=== PATIENT | female | born 1980 | race Caucasian/White ===

== ENCOUNTER 2017-02-09 08:38 | Emergency (ER) | payer BC ==
[~2017-02-09] VITALS: Ht 162.6 cm; Wt 77.1 kg
[~2017-02-09 08:38] MED LIST: ADAL40PE SQ; AZAT50TA10 PO; HYDR200T PO; LEVO150C PO
[2017-02-09] MEDS ORDERED: IV NORMAL SALINE 1000ML BAG 1,000 ML IV SCH (09:21)
[2017-02-09] MEDS ORDERED: ONDANSETRON PF 4 MG/2 ML VIAL. IV ONE (09:30)
[2017-02-09] MEDS ORDERED: MORPHINE SULFATE 4 MG/ML DISP.SYRIN. IV/SQ PRN (09:30)
[2017-02-09 09:41] LABS: BILIRUBIN,URINE SMALL (NEG); GLUCOSE,URINE NEGATIVE (NEG); NITRITE,URINE NEGATIVE (NEG); PH,URINE 5.5; PROTEIN,URINE NEGATIVE (NEG-TRACE); UROBILINOGEN,URINE 0.2 mg/dL (0.2 mg/dL)
[2017-02-09 09:54] LABS: CALCIUM 9.1 mg/dL (8.5-10.1); CREATININE 0.9 mg/dL (0.6-1.0); GFR 70.8; POTASSIUM 3.3 mmol/L (3.5-5.1)
[2017-02-09 09:57] LABS: BASO % 1 % (0-3); EOS % 3 % (0-3); HEMATOCRIT 41.7 % (36.0-47.0); HEMOGLOBIN 14.3 g/dL (12.0-15.5); LYMPH # 1.7 x10^3/uL (1.0-4.8); LYMPH % 32 % (24-48); MEAN CORPUSCULAR HEMOGLOBIN 30 pg (25-35); MEAN CORPUSCULAR HGB CONC 34 g/dL (31-37); MEAN CORPUSCULAR VOLUME 87 fL (79-100); MONO % 15 % (0-9); NEUT % 50 % (31-73); PLATELET COUNT 301 x10^3/uL (140-400); RED BLOOD COUNT 4.79 x10^6/uL (3.50-5.40); RED CELL DISTRIBUTION WIDTH 13.3 % (11.5-14.5); WHITE BLOOD COUNT 5.3 x10^3/uL (4.0-11.0)
[2017-02-09 10:02] LABS: ALBUMIN 4.2 g/dL (3.4-5.0); ALBUMIN/GLOBULIN RATIO 1.2 (1.0-1.7); TOTAL BILIRUBIN 1.1 mg/dL (0.2-1.0); TOTAL PROTEIN 7.8 g/dL (6.4-8.2)
[2017-02-09 10:04] LABS: BACTERIA,URINE MODERATE /HPF (0-FEW); RBC,URINE 0 /HPF (0-2); WBC,URINE OCC /HPF (0-4)
[2017-02-09 10:05] LABS: SQUAMOUS EPITHELIAL CELL,UR MOD /LPF
--- NOTE | 2017-02-09 10:19 | RAD ---
Acute abdomen series with chest, 3 views, 02/09/2017: History: Nausea, vomiting, upper abdominal pain, Crohn's disease There is a paucity of bowel gas in the abdomen, perhaps related to the history of vomiting. No dilated bowel loops are delineated. No free air is seen in the abdomen. Surgical clips are present in the right upper quadrant. Lower pelvic calcifications are compatible with phleboliths. There is a mild thoracolumbar scoliosis. The heart size and pulmonary vascularity are normal. A tiny nodular opacity in the right upper chest is probably a granuloma. No pulmonary infiltrates are seen. There is no evidence of pleural fluid. IMPRESSION: No acute abdominal abnormality is detected.
--- NOTE | 2017-02-09 10:27 | PHYS DOC ---
Past Medical History Past Medical History: Hypertension, Migraines Additional Past Medical Histor: CCROHN'S, RHEUMATOID ARTHRITIS, CONSTANCE, ULCERATIVE COLITIS, BOSETS, Past Surgical History: Cholecystectomy, Hysterectomy, Tonsillectomy, Other Additional Past Surgical Histo: THYROID REMOVED, RIGHT KNEE SX, Alcohol Use: None Drug Use: None Adult General Chief Complaint Chief Complaint: ABDOMINAL PAIN HPI HPI Patient is a 36 year old female with history of Crohn's disease who presents with upper abdominal pain with nausea, vomiting, and diarrhea for 1 week. She has had intermittent blood in the stools. She reports subjective fever, but was out of town and unable to take her temperature. She denies urinary symptoms. She is currently taking Imuran for her Crohn's. She is also receiving injections of Entyvio and is in the loading dose phase, as it is a new medication for her. Her PCP is Dr. Yi. Her GI doctor is Dr. Riley. Review of Systems Review of Systems Constitutional: Reports subjective fever. Eyes: Denies change in visual acuity, redness, or eye pain. [] HENT: Denies ear pain, nasal congestion or sore throat. [] Respiratory: Denies cough or shortness of breath. [] Cardiovascular: Denies chest pain, palpitations or edema. [] GI: Reports upper abdominal pain, nausea, vomiting, diarrhea, and occasional bloody stools. : Denies dysuria, hematuria or urinary frequency. [] Musculoskeletal: Denies back pain or joint pain. [] Integument: Denies rash or skin lesions. [] Neurologic: Denies headache, focal weakness or sensory changes. [] Endocrine: Denies polyuria or polydipsia. [] Psych: Denies anxiety or depression. [] All systems reviewed and negative unless otherwise stated in the HPI. Current Medications Current Medications Current Medications Medications (Trade) Dose Ordered Sig/Krish Start Time Stop Time Status Last Admin Dose Admin Fentanyl Citrate (Fentanyl 2ml Vial) 50 mcg PRN Q15MIN PRN 02/09/17 10:45 02/10/17 10:44 02/09/17 11:06 50 MCG Morphine Sulfate 4 mg 4 mg PRN Q15MIN PRN 02/09/17 09:30 02/10/17 09:29 02/09/17 09:40 4 MG Ondansetron HCl (Zofran) 4 mg 1X ONCE 02/09/17 09:30 02/09/17 09:31 DC 02/09/17 09:38 4 MG Sodium Chloride (Iv Sodium Chloride 0.9% 1000ml Bag) 1,000 ml @ 1,000 mls/hr Q1H 02/09/17 09:21 02/09/17 10:20 DC 02/09/17 09:42 1,000 MLS/HR Allergies Allergies Allergies Coded Allergies Type Severity Reaction Last Updated Verified levothyroxine sodium Allergy Intermediate Hives 05/26/16 Yes penicillin G Allergy Intermediate 05/26/16 Yes Physical Exam Physical Exam Constitutional: Well developed, well nourished, no acute distress, non-toxic appearance. [] HENT: Normocephalic, atraumatic, oropharynx moist. [] Eyes: PERRLA, EOMI, conjunctiva normal, no discharge. [] Neck: Normal range of motion, no tenderness, supple, no stridor. [] Cardiovascular: Heart rate regular rhythm, no murmur. [] Lungs & Thorax: Bilateral breath sounds clear to auscultation without wheezes, rales, or rhonchi. [] Abdomen: Bowel sounds normal, soft, diffuse upper abdominal tenderness, no masses, no pulsatile masses. [] Skin: Warm, dry, no erythema, no rash. [] Extremities: No tenderness, ROM intact, no edema. Distal pulses equal bilaterally. [] Neurologic: Alert and oriented X 3, normal motor function, normal sensory function, no focal deficits noted. [] Psychologic: Affect normal, judgement normal, mood normal. [] Current Patient Data Vital Signs Vital Signs Date Time Temp Pulse Resp B/P Pulse Ox O2 Delivery O2 Flow Rate FiO2 02/09/17 11:06 16 99 Room Air 02/09/17 11:00 54 97/65 02/09/17 08:45 98.1 98.1 Lab Values Laboratory Tests Test 02/09/17 08:00 02/09/17 09:20 02/09/17 09:30 POC Urine HCG, Qualitative Hcg negative (Negative) Urine Collection Type Unknown Urine Color Maryellen Urine Clarity Cloudy Urine pH 5.5 Urine Specific [place] 1.025 Urine Protein Negativemg/dL (NEG-TRACE) Urine Glucose (UA) Negativemg/dL (NEG) Urine Ketones (Stick) 40mg/dL (NEG) Urine Blood Small (NEG) Urine Nitrite Negative (NEG) Urine Bilirubin Small (NEG) Urine Urobilinogen Dipstick 0.2mg/dL (0.2 mg/dL) Urine Leukocyte Esterase Negative (NEG) Urine RBC 0/HPF (0-2) Urine WBC Occ/HPF (0-4) Urine Squamous Epithelial Cells Mod/LPF Urine Bacteria Moderate/HPF (0-FEW) Urine Mucus Slight/LPF White Blood Count 5.3x10^3/uL (4.0-11.0) Red Blood Count 4.79x10^6/uL (3.50-5.40) Hemoglobin 14.3g/dL (12.0-15.5) Hematocrit 41.7% (36.0-47.0) Mean Corpuscular Volume 87fL (79-100) Mean Corpuscular Hemoglobin 30pg (25-35) Mean Corpuscular Hemoglobin Concent 34g/dL (31-37) Red Cell Distribution Width 13.3% (11.5-14.5) Platelet Count 301x10^3/uL (140-400) Neutrophils (%) (Auto) 50% (31-73) Lymphocytes (%) (Auto) 32% (24-48) Monocytes (%) (Auto) 15% (0-9) H Eosinophils (%) (Auto) 3% (0-3) Basophils (%) (Auto) 1% (0-3) Neutrophils # (Auto) 2.6x10^3uL (1.8-7.7) Lymphocytes # (Auto) 1.7x10^3/uL (1.0-4.8) Monocytes # (Auto) 0.8x10^3/uL (0.0-1.1) Eosinophils # (Auto) 0.2x10^3/uL (0.0-0.7) Basophils # (Auto) 0.0x10^3/uL (0.0-0.2) Sodium Level 139mmol/L (136-145) Potassium Level 3.3mmol/L (3.5-5.1) L Chloride Level 101mmol/L (98-107) Carbon Dioxide Level 28mmol/L (21-32) Anion Gap 10 (6-14) Blood Urea Nitrogen 12mg/dL (7-20) Creatinine 0.9mg/dL (0.6-1.0) Estimated GFR (Cockcroft-Gault) 70.8 BUN/Creatinine Ratio 13 (6-20) Glucose Level 89mg/dL (70-99) Calcium Level 9.1mg/dL (8.5-10.1) Total Bilirubin 1.1mg/dL (0.2-1.0) H Aspartate Amino Transferase (AST) 107U/L (15-37) H Alanine Aminotransferase (ALT) 105U/L (14-59) H Alkaline Phosphatase 62U/L (46-116) Total Protein 7.8g/dL (6.4-8.2) Albumin 4.2g/dL (3.4-5.0) Albumin/Globulin Ratio 1.2 (1.0-1.7) Lipase 95U/L (73-393) Laboratory Tests 02/09/17 09:30 Laboratory Tests 02/09/17 09:30 EKG EKG [] Radiology/Procedures Radiology/Procedures REASON: nausea, vomiting, diarrhea since 02/03/17, upper abd pain, hx crohns PROCEDURE: ACUTE ABDOMEN SERIES Acute abdomen series with chest, 3 views, 02/09/2017: History: Nausea, vomiting, upper abdominal pain, Crohn's disease There is a paucity of bowel gas in the abdomen, perhaps related to the history of vomiting. No dilated bowel loops are delineated. No free air is seen in the abdomen. Surgical clips are present in the right upper quadrant. Lower pelvic calcifications are compatible with phleboliths. There is a mild thoracolumbar scoliosis. The heart size and pulmonary vascularity are normal. A tiny nodular opacity in the right upper chest is probably a granuloma. No pulmonary infiltrates are seen. There is no evidence of pleural fluid. IMPRESSION: No acute abdominal abnormality is detected. REASON: upper abd pain, n/v/d, elevated LFTs PROCEDURE: ABDOMEN LTD Right upper quadrant abdominal ultrasound, 02/09/2017: History: Upper abdominal pain, nodular and vomiting The gallbladder is surgically absent. No bile duct dilatation is seen. There is no evidence of a hepatic mass. The pancreatic body is unremarkable. Other portions of the pancreas were obscured by overlying bowel. Limited views of the right kidney show no abnormality. IMPRESSION: 1. Status post cholecystectomy. 2. No acute abnormality is detected. Course & Med Decision Making Course & Med Decision Making Pertinent Labs and Imaging studies reviewed. (See chart for details) Patient is a 36 year old female history of Crohn's disease who presents with 1 week of upper abdominal pain with nausea, vomiting, and diarrhea. On exam, her abdomen is soft and nonsurgical with diffuse upper abdominal tenderness. Laboratory evaluation reveals no leukocytosis. She has mild elevation of the LFTs and bilirubin. She has reportedly had cholecystectomy. Acute abdominal x- ray does not show any evidence of obstruction. Abdominal ultrasound does not show any acute abnormalities. The patient was initially given IV morphine for her pain. She stated that the morphine made her pain worse initially. Pain medication was changed to IV fentanyl with improvement in her pain. She was also given IV fluids and Zofran. I discussed the results with the patient and her spouse. Return precautions were discussed. She verbalizes understanding and agrees with plan. Dragon Disclaimer Dragon Disclaimer This electronic medical record was generated, in whole or in part, using a voice recognition dictation system. Departure Departure Impression: Primary Impression: Abdominal pain Additional Impression: Vomiting and diarrhea Disposition: 01 HOME, SELF-CARE Condition: IMPROVED Referrals: JUSTIN YI (PCP) SOFIA RILEY MD Patient Instructions: Abdominal Pain, [id number], Crohn's Disease, Diarrhea, [id number] Additional Instructions: Your x-ray and ultrasound were normal today. Your labs were normal with the exception of mildly elevated liver enzyme tests. Please take the prescribed pain medication as directed. Do not drive or operate heavy machinery while taking pain medication. Please follow-up with Dr. Riley in the next 2-3 days, sooner if concerns. Return to the emergency department if you have fever, severe pain, continued vomiting, bloody stools, or other new or concerning symptoms. Scripts Promethazine Hcl 25 Mg Biiewf05 Mg PO Q6H PRN NAUSEA/VOMITING #20 TAB Prov:SINDHU SAUER 02/09/17 Hydrocodone/Apap 5-325 ([place] 5-325 Tablet)1 Each Tablet1 Tab PO PRN Q6HRS PRN PAIN #20 TAB Prov:SINDHU SAUER 02/09/17 Problem Qualifiers Primary Impression: Abdominal pain Abdominal location: upper abdomen, unspecified Qualified Code: R10.10 - Upper abdominal pain, unspecified SINDHU SAUER Feb 09, 2017 10:27
[2017-02-09] MEDS ORDERED: FENTANYL PF 100 MCG/2 ML VIAL. IV PRN (10:45)
--- NOTE | 2017-02-09 11:10 | RAD ---
Right upper quadrant abdominal ultrasound, 02/09/2017: History: Upper abdominal pain, nodular and vomiting The gallbladder is surgically absent. No bile duct dilatation is seen. There is no evidence of a hepatic mass. The pancreatic body is unremarkable. Other portions of the pancreas were obscured by overlying bowel. Limited views of the right kidney show no abnormality. IMPRESSION: 1. Status post cholecystectomy. 2. No acute abnormality is detected.
[2017-02-09] MEDS ORDERED: PROM25TA10 PO (12:00)
[2017-02-09] MEDS ORDERED: HYDR-971 PO (12:00)
[2017-02-09 12:02] VITALS: BP 92/53
== END 2017-02-09 12:16 | disposition home or self-care (01) ==
LOC: ER 08:38
DX: R10.10 Upper abdominal pain, unspecified (principal); R11.2 Nausea with vomiting, unspecified; R19.7 Diarrhea, unspecified; R79.89 Other specified abnormal findings of blood chemistry; K92.1 Melena; R50.9 Fever, unspecified; I10 Essential (primary) hypertension; G43.909 Migraine, unspecified, not intractable, without status migrainosus; M06.9 Rheumatoid arthritis, unspecified; Z87.19 Personal history of other diseases of the digestive system; Z90.49 Acquired absence of other specified parts of digestive tract; Z88.0 Allergy status to penicillin
CPT/HCPCS: 36415; 74022; 76705; 80053; 81001; 81025; 83690; 85027; 87086; 96361; 96374; 96375; 99285; J2270; J2405; J3010; J7030

== ENCOUNTER → 2018-01-20 | Outpatient (CLI) | payer BC ==
[2018-01-20 14:11] LABS: ADD MAN DIFF? NO
[2018-01-20 14:14] LABS: BASO # 0.1 x10^3/uL (0.0-0.2); BASO % 1 % (0-3); EOS # 0.3 x10^3/uL (0.0-0.7); EOS % 4 % (0-3); HEMATOCRIT 40.9 % (36.0-47.0); HEMOGLOBIN 13.9 g/dL (12.0-15.5); LYMPH # 2.2 x10^3/uL (1.0-4.8); LYMPH % 26 % (24-48); MEAN CORPUSCULAR HEMOGLOBIN 31 pg (25-35); MEAN CORPUSCULAR HGB CONC 34 g/dL (31-37); MEAN CORPUSCULAR VOLUME 89 fL (79-100); MONO # 0.8 x10^3/uL (0.0-1.1); MONO % 9 % (0-9); NEUT # 5.3 x10^3uL (1.8-7.7); NEUT % 61 % (31-73); PLATELET COUNT 324 x10^3/uL (140-400); RED BLOOD COUNT 4.57 x10^6/uL (3.50-5.40); RED CELL DISTRIBUTION WIDTH 13.1 % (11.5-14.5); WHITE BLOOD COUNT 8.6 x10^3/uL (4.0-11.0)
[2018-01-20 14:33] LABS: ALBUMIN 3.9 g/dL (3.4-5.0); ALK PHOS 62 U/L (46-116); ALT (SGPT) 35 U/L (14-59); ANION GAP 5 (6-14); AST (SGOT) 21 U/L (15-37); BLOOD UREA NITROGEN 12 mg/dL (7-20); BUN/CREATININE RATIO 15 (6-20); CARBON DIOXIDE 30 mmol/L (21-32); CHLORIDE 103 mmol/L (98-107); CREATININE 0.8 mg/dL (0.6-1.0); GFR 80.7; GLUCOSE 90 mg/dL (70-99); POTASSIUM 3.9 mmol/L (3.5-5.1); SODIUM 138 mmol/L (136-145); TOTAL BILIRUBIN 0.6 mg/dL (0.2-1.0); TOTAL PROTEIN 7.7 g/dL (6.4-8.2)
[2018-01-21 04:22] LABS: MRSA BY PCR Negative (Negative)
== END | disposition home or self-care (01) ==
LOC: SURGPAT 13:15
DX: Z01.818 Encounter for other preprocedural examination (principal); M51.16 Intervertebral disc disorders with radiculopathy, lumbar region
CPT/HCPCS: 36415; 80053; 85025; 87641

== ENCOUNTER 2018-01-27 06:51 | Day surgery (SDC) | payer BC ==
[2018-01-27] MEDS ORDERED: MORPHINE SULFATE 4 MG/ML DISP.SYRIN. IV (07:00)
[2018-01-27] MEDS ORDERED: LIDOCAINE 1% PF 2 ML VIAL. ID (07:00)
[2018-01-27] MEDS ORDERED: fentaNYL PF VIAL 100 MCG/2 ML VIAL IV (07:00)
[2018-01-27] MEDS: IV RINGERS,LACTATED 1000ML 1,000 ML IV (07:00)
[2018-01-27] MEDS ORDERED: PROCHLORPERAZINE 10 MG/2 ML VIAL. IV (07:00)
[2018-01-27] MEDS ORDERED: DEXAMETHASONE SOD PHOS 20 MG/5 ML VIAL. (07:52)
[2018-01-27] MEDS ORDERED: ONDANSETRON PF 4 MG/2 ML VIAL. (07:52)
[2018-01-27] MEDS: VANCOMYCIN 1GM IVPB FOR OMNI 250 ML IV (07:52)
[2018-01-27] MEDS ORDERED: LIDOCAINE 2% PF Vial for OR 5 ML VIAL. (07:52)
[2018-01-27] MEDS ORDERED: PROPOFOL 20 ML IV (07:52)
[2018-01-27] MEDS ORDERED: PHENYLEPHRINE 10 MG/ML VIAL. (07:53)
[2018-01-27] MEDS ORDERED: PROPOFOL 50 ML IV ×2 (07:53→10:12)
[2018-01-27] MEDS ORDERED: REMIFENTANIL 1 MG VIAL. IV (07:53)
[2018-01-27] MEDS ORDERED: ROCURONIUM 50 MG/5 ML VIAL. (07:53)
[2018-01-27] MEDS ORDERED: MINERAL OIL/PETROLATUM,WHITE OPHTH OINT 3.5GM TUBE. (07:53)
[2018-01-27] MEDS ORDERED: MIDAZOLAM HCL/PF 2 MG/2 ML VIAL. (07:53)
[2018-01-27] MEDS ORDERED: 0.9 % SODIUM CHLORIDE 50 ML VIAL. IJ (07:54)
[2018-01-27] MEDS: GELATIN SPONGE SIZE 100. (09:35)
[2018-01-27] MEDS: BACITRACIN 50,000 UNIT in IV NORMAL SALINE 1000ML BAG 1,000 ML IRR (09:35)
[2018-01-27] MEDS: THROMBIN TOPICAL 20,000 UNIT SPRAY.SYRN KIT TP (09:35)
[2018-01-27] MEDS: KETOROLAC 60 MG/2 ML INJ FOR OR. (09:35)
[2018-01-27] MEDS: BUPIVAC MPF-EPI 0.5%-1:200000 30 ML VIAL. INJ (09:35)
[2018-01-27] MEDS ORDERED: GLYCOPYRROLATE 1 MG/5 ML VIAL. (09:58)
[2018-01-27] MEDS ORDERED: NEOSTIGMINE 10 MG/10 ML VIAL. (10:25)
[2018-01-27] MEDS ORDERED: DESFLURANE 61 TO 120 MINUTES IH (10:32)
[2018-01-27] MEDS: ONDANSETRON PF 4 MG/2 ML VIAL. IV (11:12)
[2018-01-27] MEDS: fentaNYL PF VIAL 100 MCG/2 ML VIAL IV ×2 (11:12→11:40)
[2018-01-27] MEDS ORDERED: HYDROcodone/APAP 7.5/325MG 1 TAB TABLET PO (11:30)
[2018-01-27] MEDS: HYDROcodone/APAP 7.5/325MG 1 TAB TABLET PO (11:42)
== END 2018-01-27 12:28 | disposition home or self-care (01) ==
LOC: SURG 06:51
DX: M51.16 Intervertebral disc disorders with radiculopathy, lumbar region (principal); M48.07 Spinal stenosis, lumbosacral region; I10 Essential (primary) hypertension; G43.909 Migraine, unspecified, not intractable, without status migrainosus; E07.9 Disorder of thyroid, unspecified; M06.9 Rheumatoid arthritis, unspecified; Z88.0 Allergy status to penicillin; Z90.710 Acquired absence of both cervix and uterus; Z90.49 Acquired absence of other specified parts of digestive tract; Z98.890 Other specified postprocedural states; Z79.899 Other long term (current) drug therapy
CPT/HCPCS: 63030; 76000; 88304; 88311; 97161-GP; J1100; J1885; J2250; J2405; J2704; J2710; J3010; J3370; J3490; J7030

== ENCOUNTER → 2018-03-09 | Outpatient (CLI) | payer BC ==
[2018-03-09] MEDS: GADOBUTROL 7.5 MMOL/7.5 ML VIAL IV (10:02)
== END | disposition home or self-care (01) ==
LOC: MRI 08:44
DX: M51.36 Other intervertebral disc degeneration, lumbar region (principal)
CPT/HCPCS: 72120; 72158; A9585

== ENCOUNTER → 2018-06-06 | Outpatient (CLI) | payer BC | END | disposition home or self-care (01) | LOC: PNCL 09:12 | DX: M54.5 Low back pain (principal); K50.90 Crohn's disease, unspecified, without complications; E06.3 Autoimmune thyroiditis; M19.90 Unspecified osteoarthritis, unspecified site; G43.909 Migraine, unspecified, not intractable, without status migrainosus; I10 Essential (primary) hypertension; Z90.710 Acquired absence of both cervix and uterus; Z90.49 Acquired absence of other specified parts of digestive tract | CPT/HCPCS: 99214 ==

== ENCOUNTER → 2018-06-13 | Outpatient (CLI) | payer BC ==
[~2018-06-13] MED LIST changes: -ADAL40PE SQ; -AZAT50TA10 PO; +BUPIVACAINE MPF 0.25% 10 ML VIAL.; -HYDR200T PO; +IOHEXOL 180 MG/ML 10 ML VIAL.; -LEVO150C PO; +LIDOCAINE 2% PF 2ML VIAL.; +methylPREDNISolone ACETATE 40 MG/ML VIAL.; +methylPREDNISolone ACETATE 80 MG/ML VIAL.
== END | disposition home or self-care (01) ==
LOC: PNCL 07:46
DX: M51.36 Other intervertebral disc degeneration, lumbar region (principal); M96.1 Postlaminectomy syndrome, not elsewhere classified; M47.817 Spondylosis without myelopathy or radiculopathy, lumbosacral region; G43.909 Migraine, unspecified, not intractable, without status migrainosus; Z88.0 Allergy status to penicillin; Z88.1 Allergy status to other antibiotic agents; Z98.890 Other specified postprocedural states; Z90.49 Acquired absence of other specified parts of digestive tract; K50.90 Crohn's disease, unspecified, without complications; Z90.710 Acquired absence of both cervix and uterus; Z90.79 Acquired absence of other genital organ(s); M06.9 Rheumatoid arthritis, unspecified; E89.0 Postprocedural hypothyroidism; Z79.899 Other long term (current) drug therapy
CPT/HCPCS: 64493; 64494; J1030; J1040; J2001; J3490; Q9965

== ENCOUNTER → 2018-06-29 | Outpatient (CLI) | payer BC ==
[2018-01-27 11:49] VITALS: BP 106/64
[~2018-06-29] MED LIST changes: +ADAL40PE SQ; +AZAT50TA20 PO; -BUPIVACAINE MPF 0.25% 10 ML VIAL.; +FOLI1TAB16 PO; +HYDR-2762 PO; +HYDR-971 PO; +HYDR200T71 PO; -IOHEXOL 180 MG/ML 10 ML VIAL.; +LEFLUNOMIDE20 MG PO; +LEVO100C PO; +LEVO150C PO; -LIDOCAINE 2% PF 2ML VIAL.; +METH-38 PO; +METH2.5T PO; +ONDA4TAB7 PO; +PROM25TA10 PO; +VEDO300V IV; -methylPREDNISolone ACETATE 40 MG/ML VIAL.; -methylPREDNISolone ACETATE 80 MG/ML VIAL.
--- NOTE | 2018-06-29 22:16 | PAIN ---
DATE OF SERVICE: 06/29/2018 PROGRESS NOTE FOR PAIN CLINIC DIAGNOSIS: Lumbar post-laminectomy syndrome with lumbar degenerative disk disease and lumbosacral spondylosis. HISTORY OF PRESENT ILLNESS: The patient is a 38-year-old female who returns for followup status post bilateral lumbar facet joint injections. The patient reports about 50% improvement, 100% on the right and still significant pain on the left. The patient reports it is an 8 on a scale of 10 at its worst, 6 on average, 4 at its least and is a 6 today. The patient reports it is aching, tight, burning, stabbing, shooting, worse with extension of the spine, worse with standing. Awakens her from sleep about every 4 hours if she lays on the left side. The patient reports no loss of motor function. No bowel or bladder incontinence or other complaints. She has pressure on the left when urinating as well. She has had difficulty lying flat on her back, which keeps her from sleeping well. The patient reports no new motor or sensory deficits, no new bowel or bladder incontinence or other complaints. PHYSICAL EXAMINATION: VITAL SIGNS: The patient's blood pressure is 121/81, pulse 78, respirations 16, temperature 98.4 degrees Fahrenheit, weight is 179 pounds. GENERAL: The patient is awake, alert, oriented, appropriate, very pleasant demeanor. HEENT: Head shows normocephalic and atraumatic. Extraocular movements are intact and symmetrical. Oral cavity: Mucous membranes are moist and pink. Dentition is intact. NECK: Shows anterior throat supple without palpable lymphadenopathy noted. Swallow reflex is symmetrical. CHEST: Shows normal on inspection. Breath sounds are clear to auscultation bilaterally. HEART: Shows S1, S2 clear. No murmurs auscultated. ABDOMEN: Soft, nontender, nondistended. No palpable organomegaly is noted. No rebound or guarding demonstrated. BACK: Shows spine grossly in the midline. Normal-appearing cervical lordotic curvature, thoracic kyphotic curvature, and lumbar lordotic curvature is slightly flattened with well-healed surgical scarring noted. Lumbar paraspinous muscle shows symmetrical on inspection, on palpation has some mild tenderness on the left, but not the right. Right is nontender with palpation throughout the upper, middle, and lower distribution. Left side is tender with the middle palpation in the left paraspinous musculature. The patient has good rotational motion with some moderate tenderness with extension of the spine and axial loading on the left only, but is relieved fairly quickly with forward flexion at 45 degrees, right and left lateral rotation does not elicit any pain bilaterally. EXTREMITIES: Lower extremities show deep tendon reflexes at 2+ in the patellar tendons. Motor exam is strong with 5/5 dorsiflexion, extension, quadriceps and hamstring flexion and equal and symmetrical. Peripheral pulses are 1+ posterior tibia. No peripheral edema is noted. Options were discussed with the patient. The patient's old chart was reviewed as her current medication regimen updated. Current review of systems updated today as well and we will hold on any further injections as the patient is adamant about not performing any more injections at this time as it is quite uncomfortable for her. We discussed some other options. We will send her for water therapy, for stretching and strengthening as well as aerobic pool therapy. The patient is interested in this and would like to proceed. We will have the patient follow up after physical therapy is completed, if not significantly improved. ANGIE MONTEIRO MD DR: ROSY/barbra JOB#: [id number] / [id number]
== END | disposition home or self-care (01) ==
LOC: PNCL 08:05
PROVIDERS: ATTEND Anesthesiology
DX: M51.36 Other intervertebral disc degeneration, lumbar region (principal); M47.897 Other spondylosis, lumbosacral region; M96.1 Postlaminectomy syndrome, not elsewhere classified
CPT/HCPCS: 99212

== ENCOUNTER 2018-10-01 16:13 | Emergency (ER) | payer BC ==
[~2018-10-01] VITALS: Ht 162.6 cm; Wt 78.5 kg
[~2018-10-01 16:13] MED LIST changes: +HYDR-3164 PO; -HYDR-971 PO
[2018-10-01 17:12] LABS: BILIRUBIN,URINE NEGATIVE (NEG); CLARITY,URINE CLEAR; COLOR,URINE YELLOW; NITRITE,URINE NEGATIVE (NEG); PH,URINE 5.5; PROTEIN,URINE NEGATIVE (NEG-TRACE); UROBILINOGEN,URINE 0.2 mg/dL (0.2 mg/dL)
[2018-10-01] MEDS ORDERED: IOHEXOL 300 MG/ML 100ML VIAL. IV ONE (17:15)
[2018-10-01] MEDS ORDERED: DICYCLOMINE 20 MG/2 ML AMPUL. IM ONE (17:15)
[2018-10-01] MEDS ORDERED: ONDANSETRON PF 4 MG/2 ML VIAL. IV ONE (17:15)
[2018-10-01] MEDS ORDERED: fentaNYL PF VIAL 100 MCG/2 ML VIAL IV ONE ×2 (17:15→18:30)
[2018-10-01] MEDS ORDERED: CONTRAST GIVEN. MC PRN (17:15)
[2018-10-01] MEDS ORDERED: IV NORMAL SALINE 1000ML BAG 1,000 ML IV ONE (17:15)
--- NOTE | 2018-10-01 17:20 | PHYS DOC ---
Past Medical History Past Medical History: Hypertension, Migraines Additional Past Medical Histor: CCROHN'S, RHEUMATOID ARTHRITIS, CONSTANCE, ULCERATIVE COLITIS, BAHCETS, Past Surgical History: Cholecystectomy, Hysterectomy, Tonsillectomy, Other Additional Past Surgical Histo: THYROID REMOVED, RIGHT KNEE SX, Alcohol Use: None Drug Use: None Adult General Chief Complaint Chief Complaint: ABDOMINAL PAIN HPI HPI Patient is a 38 year old female who presents with history of Crohn's and she's had diarrhea, nausea, right side and right upper called pain the last 2 weeks. She states this does feel like a Crohn's flare. Patient states that she does see red blood in her stool but that she does have hemorrhoids and a fissure. Patient states that this morning she had a dizzy spell but there was no syncope. Patient's GI doctor is Dr. Rosa and her primary care doctor is Dr. Lo. Patient has a history of hysterectomy, Crohn's, thyroidectomy, bahcet, rheumatoid arthritis, cholecystectomy, back surgeries. Review of Systems Review of Systems Constitutional: Denies fever or chills [] Eyes: Denies change in visual acuity, redness, or eye pain [] HENT: Denies nasal congestion or sore throat [] Respiratory: Denies cough or shortness of breath [] Cardiovascular: No additional information not addressed in HPI [] GI: Right upper inside abdominal pain, nausea. Denies vomiting. Chronic bloody stools or diarrhea [] : Denies dysuria or hematuria [] Musculoskeletal: Denies back pain or joint pain [] Integument: Denies rash or skin lesions [] Neurologic: Dizziness this morning 1 episode. Denies headache, focal weakness or sensory changes [] All other systems were reviewed and found to be within normal limits, except as documented in this note. Current Medications Current Medications Current Medications Medications (Trade) Dose Ordered Sig/Krish Start Time Stop Time Status Last Admin Dose Admin Dicyclomine HCl (Bentyl) 10 mg 1X ONCE 10/01/18 17:15 10/01/18 17:16 DC 10/01/18 17:19 10 MG Fentanyl Citrate (Fentanyl 2ml Vial) 50 mcg 1X ONCE 10/01/18 18:30 10/01/18 18:31 DC 10/01/18 18:24 50 MCG Info (CONTRAST GIVEN -- Rx MONITORING) 1 each PRN DAILY PRN 10/01/18 17:15 10/03/18 17:14 Iohexol (Omnipaque 300 Mg/ml) 75 ml 1X ONCE 10/01/18 17:15 10/01/18 17:16 DC 10/01/18 17:15 75 ML Ondansetron HCl (Zofran) 4 mg 1X ONCE 10/01/18 17:15 10/01/18 17:16 DC 10/01/18 17:20 4 MG Sodium Chloride 1,000 ml @ 1,000 mls/hr 1X ONCE 10/01/18 17:15 10/01/18 18:14 DC 10/01/18 17:20 1,000 MLS/HR Allergies Allergies Allergies Coded Allergies Type Severity Reaction Last Updated Verified levothyroxine sodium Allergy Intermediate Hives 01/20/18 Yes penicillin G Allergy Intermediate 01/20/18 Yes Physical Exam Physical Exam Constitutional: Well developed, well nourished, no acute distress, non-toxic appearance. [] HENT: Normocephalic, atraumatic, bilateral external ears normal, oropharynx moist, no oral exudates, nose normal. [] Eyes: PERRLA, EOMI, conjunctiva normal, no discharge. [] Neck: Normal range of motion, no tenderness, supple, no stridor. [] Cardiovascular:Heart rate regular rhythm, no murmur [] Lungs & Thorax: Bilateral breath sounds clear to auscultation [] Abdomen: Bowel sounds normal, soft, right upper quadrant tenderness, no masses, no pulsatile masses. [] Skin: Warm, dry, no erythema, no rash. [] Back: No tenderness, no CVA tenderness. [] Extremities: No tenderness, no cyanosis, no clubbing, ROM intact, no edema. [] Neurologic: Alert and oriented X 3, normal motor function, normal sensory function, no focal deficits noted. [] Psychologic: Affect normal, judgement normal, mood normal. [] Current Patient Data Vital Signs Vital Signs Date Time Temp Pulse Resp B/P (MAP) Pulse Ox O2 Delivery O2 Flow Rate FiO2 10/01/18 17:47 62 20 118/77 (91) 99 Room Air 10/01/18 16:46 98.6 98.6 Lab Values Laboratory Tests Test 10/01/18 16:44 10/01/18 17:10 Urine Collection Type Unknown Urine Color Yellow Urine Clarity Clear Urine pH 5.5 Urine Specific [place] <=1.005 Urine Protein Negative mg/dL (NEG-TRACE) Urine Glucose (UA) Negative mg/dL (NEG) Urine Ketones (Stick) Negative mg/dL (NEG) Urine Blood Negative (NEG) Urine Nitrite Negative (NEG) Urine Bilirubin Negative (NEG) Urine Urobilinogen Dipstick 0.2 mg/dL (0.2 mg/dL) Urine Leukocyte Esterase Negative (NEG) Urine RBC 0 /HPF (0-2) Urine WBC 0 /HPF (0-4) Urine Squamous Epithelial Cells Occ /LPF Urine Bacteria Few /HPF (0-FEW) Urine Test Negative (NEG) White Blood Count 4.6 x10^3/uL (4.0-11.0) Red Blood Count 4.81 x10^6/uL (3.50-5.40) Hemoglobin 15.0 g/dL (12.0-15.5) Hematocrit 43.7 % (36.0-47.0) Mean Corpuscular Volume 91 fL (79-100) Mean Corpuscular Hemoglobin 31 pg (25-35) Mean Corpuscular Hemoglobin Concent 34 g/dL (31-37) Red Cell Distribution Width 14.7 % (11.5-14.5) H Platelet Count 264 x10^3/uL (140-400) Neutrophils (%) (Auto) 42 % (31-73) Lymphocytes (%) (Auto) 31 % (24-48) Monocytes (%) (Auto) 22 % (0-9) H Eosinophils (%) (Auto) 4 % (0-3) H Basophils (%) (Auto) 1 % (0-3) Neutrophils # (Auto) 2.0 x10^3uL (1.8-7.7) Lymphocytes # (Auto) 1.4 x10^3/uL (1.0-4.8) Monocytes # (Auto) 1.0 x10^3/uL (0.0-1.1) Eosinophils # (Auto) 0.2 x10^3/uL (0.0-0.7) Basophils # (Auto) 0.0 x10^3/uL (0.0-0.2) Segmented Neutrophils % 43 % (35-66) Lymphocytes % 29 % (24-48) Monocytes % 21 % (0-10) H Eosinophils % 3 % (0-5) Basophils % 4 % (0-3) H Platelet Estimate Adequate (ADEQUATE) Sodium Level 138 mmol/L (136-145) Potassium Level 3.5 mmol/L (3.5-5.1) Chloride Level 102 mmol/L (98-107) Carbon Dioxide Level 29 mmol/L (21-32) Anion Gap 7 (6-14) Blood Urea Nitrogen 8 mg/dL (7-20) Creatinine 0.9 mg/dL (0.6-1.0) Estimated GFR (Cockcroft-Gault) 70.1 BUN/Creatinine Ratio 9 (6-20) Glucose Level 75 mg/dL (70-99) Calcium Level 9.9 mg/dL (8.5-10.1) Total Bilirubin 0.4 mg/dL (0.2-1.0) Aspartate Amino Transferase (AST) 75 U/L (15-37) H Alanine Aminotransferase (ALT) 132 U/L (14-59) H Alkaline Phosphatase 82 U/L (46-116) Total Protein 8.2 g/dL (6.4-8.2) Albumin 4.0 g/dL (3.4-5.0) Albumin/Globulin Ratio 1.0 (1.0-1.7) Lipase 108 U/L (73-393) Laboratory Tests 10/01/18 17:10 Laboratory Tests 10/01/18 17:10 EKG EKG [] Radiology/Procedures Radiology/Procedures CT abdomen pelvis Impressions: [facility] [address] [place], [place] [id number] IMAGING REPORT Signed PATIENT: ELIANE MOROCHO ACCOUNT: [id number] : 1980 LOCATION: ER AGE: 38 SEX: F EXAM STATUS: REG ER ORD. PHYSICIAN: CARIDAD RAMIREZ APRN REASON: diarrhea PROCEDURE: CT ABD PELV W/ IV CONTRST ONLY EXAM: CT Abdomen and Pelvis with IV contrast CLINICAL HISTORY: abd pain, diarrhea x 2 weeks COMPARISON: none TECHNIQUE: Helical CT of the abdomen and pelvis was performed following the administration of intravenous contrast. Axial, coronal and sagittal reformatted images were generated. PQRS compliance statement - One or more of the following individualized dose reduction techniques were utilized for this study: 1. Automated exposure control 2. Adjustment of the mA and/or kV according to patient size 3. Use of iterative reconstruction technique FINDINGS: Lower chest: Minimal dependent opacities bilaterally likely atelectasis. Abdomen and Pelvis: No focal liver lesion. Liver is top normal in size measuring 17.6 cm length. There has been a cholecystectomy. No biliary duct dilatation. Spleen, adrenal glands and pancreas are unremarkable. Symmetric nephrograms. No focal renal lesion. No hydronephrosis. Moderate colonic stool content is seen. The appendix is normal. No evidence for bowel obstruction. No abdominal or pelvic ascites. No abdominal or pelvic lymphadenopathy. Partially distended bladder is otherwise unremarkable. Right adnexal cystic structure is seen, likely follicle. Small fat-containing periumbilical hernia is seen. Bones: Visualized osseous structures are unremarkable. IMPRESSION: 1. No CT findings to account for the patient's abdominal pain 2. Pancreas is unremarkable. 3. No evidence for bowel obstruction. Electronically signed by: Nikolas Hernandez MD (10/01/2018 6:25 PM) [facility] DICTATED and SIGNED BY: NIKOLAS HERNANDEZ MD DATE: 10/01/181817 Course & Med Decision Making Course & Med Decision Making Patient is a 38 year old female who presents with history of Crohn's and she's had diarrhea, nausea, right side and right upper called pain the last 2 weeks. She states this does feel like a Crohn's flare. Patient states that she does see red blood in her stool chronically but that she does have hemorrhoids and a fissure. Patient states that this morning she had a dizzy spell but there was no syncope. Patient's GI doctor is Dr. Rosa and her primary care doctor is Dr. Lo. Patient has a history of hysterectomy, Crohn's, thyroidectomy, bahcet, rheumatoid arthritis, cholecystectomy, back surgeries. Skin is pink warm and dry. Alert and oriented. Abdomen is soft but tender with palpation to the right upper abdomen and right side of the abdomen. There is no CVA tenderness. Ambulatory with a steady gait. Lungs are clear to auscultation in all lobes. Heart rate regular without murmur. Vital signs within normal range. There is no extremity swelling. CT abdomen and pelvis show 1. No CT findings to account for the patient's abdominal pain 2. Pancreas is unremarkable. 3. No evidence for bowel obstruction. Patient states that she is feeling better after the Bentyl and would like prescription for. Patient has not been on any recent antibiotics. Blood work is unremarkable. Patient follow-up with her GI care on Wednesday. [] Dragon Disclaimer Dragon Disclaimer This electronic medical record was generated, in whole or in part, using a voice recognition dictation system. Departure Departure Impression: Primary Impression: Abdominal pain Disposition: HOME, SELF-CARE Condition: STABLE Referrals: NANCY LO MD (PCP) Patient Instructions: Abdominal Pain, Chronic Diarrhea, Diarrhea Additional Instructions: Follow-up with her doctor on Wednesday. Continue to push fluids he did not get dehydrated. Take medications as prescribed. Scripts Dicyclomine Hcl (DICYCLOMINE HCL) 20 Mg Tablet 1 TAB PO BID PRN for DIARRHEA, #60 TAB 11 Refills Prov: CARIDAD RAMIREZ APRN 10/01/18 Problem Qualifiers Primary Impression: Abdominal pain Abdominal location: right upper quadrant Qualified Codes: R10.11 - Right upper quadrant pain CARIDAD RAMIREZ GRAPHIC TECHNICIAN Oct 01, 2018 17:20
[2018-10-01 17:22] LABS: BACTERIA,URINE FEW /HPF (0-FEW); RBC,URINE 0 /HPF (0-2); SQUAMOUS EPITHELIAL CELL,UR OCC /LPF; WBC,URINE 0 /HPF (0-4)
[2018-10-01 17:23] LABS: U PREG PATIENT NEGATIVE (NEG)
[2018-10-01 17:23] LABS: BASO % 1 % (0-3); EOS # 0.2 x10^3/uL (0.0-0.7); EOS % 4 % (0-3); HEMATOCRIT 43.7 % (36.0-47.0); LYMPH # 1.4 x10^3/uL (1.0-4.8); LYMPH % 31 % (24-48); MEAN CORPUSCULAR HEMOGLOBIN 31 pg (25-35); MEAN CORPUSCULAR HGB CONC 34 g/dL (31-37); MEAN CORPUSCULAR VOLUME 91 fL (79-100); MONO % 22 % (0-9); NEUT % 42 % (31-73); PLATELET COUNT 264 x10^3/uL (140-400); RED BLOOD COUNT 4.81 x10^6/uL (3.50-5.40); RED CELL DISTRIBUTION WIDTH 14.7 % (11.5-14.5); WHITE BLOOD COUNT 4.6 x10^3/uL (4.0-11.0)
[2018-10-01 17:45] LABS: CALCIUM 9.9 mg/dL (8.5-10.1); CREATININE 0.9 mg/dL (0.6-1.0); GFR 70.1; POTASSIUM 3.5 mmol/L (3.5-5.1)
[2018-10-01 17:47] VITALS: BP 118/77
[2018-10-01 17:48] LABS: TOTAL BILIRUBIN 0.4 mg/dL (0.2-1.0); TOTAL PROTEIN 8.2 g/dL (6.4-8.2)
[2018-10-01 18:05] LABS: % BASOS 4 % (0-3); % EOS 3 % (0-5); % LYMPHS 29 % (24-48); % MONOS 21 % (0-10); % SEGS 43 % (35-66)
[2018-10-01 18:06] LABS: PLT ESTIMATE ADEQUATE (ADEQUATE)
--- NOTE | 2018-10-01 18:29 | RAD ---
EXAM: CT Abdomen and Pelvis with IV contrast CLINICAL HISTORY: abd pain, diarrhea x 2 weeks COMPARISON: none TECHNIQUE: Helical CT of the abdomen and pelvis was performed following the administration of intravenous contrast. Axial, coronal and sagittal reformatted images were generated. PQRS compliance statement - One or more of the following individualized dose reduction techniques were utilized for this study: 1. Automated exposure control 2. Adjustment of the mA and/or kV according to patient size 3. Use of iterative reconstruction technique FINDINGS: Lower chest: Minimal dependent opacities bilaterally likely atelectasis. Abdomen and Pelvis: No focal liver lesion. Liver is top normal in size measuring 17.6 cm length. There has been a cholecystectomy. No biliary duct dilatation. Spleen, adrenal glands and pancreas are unremarkable. Symmetric nephrograms. No focal renal lesion. No hydronephrosis. Moderate colonic stool content is seen. The appendix is normal. No evidence for bowel obstruction. No abdominal or pelvic ascites. No abdominal or pelvic lymphadenopathy. Partially distended bladder is otherwise unremarkable. Right adnexal cystic structure is seen, likely follicle. Small fat-containing periumbilical hernia is seen. Bones: Visualized osseous structures are unremarkable. IMPRESSION: 1. No CT findings to account for the patient's abdominal pain 2. Pancreas is unremarkable. 3. No evidence for bowel obstruction. Electronically signed by: Nikolas Gray MD (10/01/2018 6:25 PM) [facility]
[2018-10-01] MEDS ORDERED: DICY20TA3 PO (19:16)
== END 2018-10-01 19:19 | disposition home or self-care (01) ==
LOC: ER 16:13
DX: R10.11 Right upper quadrant pain (principal); R19.7 Diarrhea, unspecified; K92.1 Melena; R42 Dizziness and giddiness; R11.0 Nausea; I10 Essential (primary) hypertension; G43.909 Migraine, unspecified, not intractable, without status migrainosus; M06.9 Rheumatoid arthritis, unspecified; E89.0 Postprocedural hypothyroidism; Z90.49 Acquired absence of other specified parts of digestive tract; Z90.710 Acquired absence of both cervix and uterus; Z90.89 Acquired absence of other organs; Z88.0 Allergy status to penicillin; Z88.8 Allergy status to other drugs, medicaments and biological substances
CPT/HCPCS: 36415; 74177; 80053; 81001; 81025; 83690; 85007; 85025; 96361; 96372; 96374; 96375; 96376; 99285; J0500; J2405; J3010; J7030; Q9967

== ENCOUNTER → 2018-11-28 | Outpatient (CLI) | payer BC ==
[~2018-11-28] MED LIST changes: +DICY20TA3 PO; -HYDR-2762 PO; +HYDR-2765 PO; +INFL100V IV; +IOHEXOL 180 MG/ML 10 ML VIAL. ONE; +methylPREDNISolone ACETATE 40 MG/ML VIAL. ONE; +methylPREDNISolone ACETATE 80 MG/ML VIAL. ONE
--- NOTE | 2018-11-28 10:08 | PAIN ---
DATE OF SERVICE: 11/28/2018 DIAGNOSES: 1. Lumbar degenerative disk disease. 2. Lumbar radiculopathy. 3. Post-lumbar laminectomy syndrome. 4. Lumbar spondylosis. HISTORY OF PRESENT ILLNESS: The patient is a 38-year-old female who returns for followup status post bilateral facet joint injections that was done on 06/13/2018. The patient reported 100% relief of the right side and no improvement on the left. The right side is asymptomatic side. The patient reports it is very uncomfortable having the procedure done back in May. We talked to her on 06/29/2018 and decided to try physical therapy, water therapy. The patient reports nothing has really helped the low back and the relief was near 100% on the right side, but only for about 4-5 days after the injections and did not want to go through the injections again. She refuses more facet joint injections. The patient reports now the pain, however is changing, is radiating to the right leg, posterior back, right posterior gluteus, posterior thigh, posterior calf into the foot with tingling and numbness in the toes on the right side with weightbearing, standing, walking and wakes her from sleep frequently, about every 4 hours. The patient reports the pain is 10 on a scale of 10 at its worst, 8 on an average, 7 at its least and is 8 today. It is aching, sharp, tight, burning, tingling, radiating, shooting, on and off in intensity. The patient reports no new motor or sensory deficits, no new bowel or bladder incontinence. PHYSICAL EXAMINATION: VITAL SIGNS: Blood pressure 141/87, pulse 88, respirations 18, temperature 98.4 degrees Fahrenheit, height is 5 feet 4 inches, weighs 184 pounds. GENERAL: The patient is awake, alert, oriented, appropriate, very pleasant demeanor. HEENT: Head is normocephalic, atraumatic. Extraocular muscles are intact and symmetrical. Oral cavity: Mucous membranes moist and pink. Dentition is intact. NECK: Shows anterior throat supple without palpable lymphadenopathy noted. Swallow reflex is symmetrical. CHEST: Shows normal with inspection. Breath sounds clear to auscultation bilaterally. HEART: Shows S1, S2 clear. No murmurs auscultated. ABDOMEN: Soft, nontender, nondistended. No palpable organomegaly is noted. No rebound or guarding demonstrated. BACK: Shows spine grossly in the midline. Normal-appearing thoracic kyphosis and lumbar lordotic curvature. A small well-healed surgical scar in the lumbar distribution. Lumbar paraspinous muscle shows symmetrical on inspection; on palpation, shows some mild tenderness but only diffusely bilaterally. The patient has good rotational motion with some moderate tenderness with right lateral rotation and extension of the lumbar spine, but not with forward flexion without radiation. EXTREMITIES: The patient's lower extremities show deep tendon reflexes 2+ in the patellar, 1+ tendo-calcaneus tendons. Motor exam is strong with 5/5 dorsiflexion, extension, quadriceps and hamstring flexion symmetrical. Peripheral pulses are 1+ posterior tibia. No peripheral edema is noted bilaterally. Options were discussed with the patient. The patient's old chart was reviewed as her current medication regimen updated. Current review of systems updated today as well. We will proceed with a lumbar epidural steroid injection today with fluoroscopic guidance. Risks were again discussed including, but not limited to bleeding, infection, possibility of epidural hematoma, subsequent neurological compromise, dural puncture, headaches, spinal cord and/or nerve damage, side effects of steroid medication and poor results regarding pain control. The patient understands and wished to proceed. The patient will return to clinic in approximately 2 weeks for followup, was counseled as to return appointment, activity level and side effects to be aware of. DIAGNOSIS: Lumbar radiculopathy with lumbar post-laminectomy syndrome. PROCEDURE: Lumbar epidural steroid injection, translaminar approach at the L5-S1 level using C-arm fluoroscopic guidance under sterile prep and drape using local anesthetic. MEDICATION INJECTED: A total of 120 mg Depo-Medrol plus 10 mL of preservative-free normal saline and 2 mL of Isovue for contrast. CONDITION AT DISCHARGE: Stable. The patient tolerated the procedure well, had no complications. ANGIE MONTEIRO MD DR: ROSY/barbra JOB#: [id number] / [id number]
== END | disposition home or self-care (01) ==
LOC: PNCL 08:10
PROVIDERS: ATTEND Anesthesiology
DX: M51.16 Intervertebral disc disorders with radiculopathy, lumbar region (principal); M96.1 Postlaminectomy syndrome, not elsewhere classified; M47.26 Other spondylosis with radiculopathy, lumbar region; Z88.0 Allergy status to penicillin; Z88.8 Allergy status to other drugs, medicaments and biological substances
CPT/HCPCS: 62323; J1030; J1040; Q9965

== ENCOUNTER → 2018-12-28 | Outpatient (CLI) | payer BC ==
--- NOTE | 2018-12-28 23:03 | PAIN ---
DATE OF SERVICE: 12/28/2018 PROGRESS NOTE FOR PAIN CLINIC: DIAGNOSES: 1. Lumbar radiculopathy with lumbar degenerative disk disease and lumbar post-laminectomy syndrome. 2. Lumbar spondylosis and lumbosacral spondylosis. HISTORY OF PRESENT ILLNESS: The patient is a 38-year-old female who returns for followup status post bilateral lumbar facet joint injections as well as lumbar epidural steroid injection. The patient has had lumbar facet joint injections on 06/13/2018. The patient reports 100% improvement on the right, but no improvement on the left, but that procedure itself was so painful that she refused to consider having this repeated. The patient did have a lumbar epidural steroid injection on her last visit, which was 11/28/2018 and reports the pain was improved for about 4-5 days by about 50% and then the pain returned in the low back and right lower extremity. The patient reports right side is the worst in the low back radiating to the right lower extremity, posterior gluteus, posterior thigh, rates a 9 on a scale of 10 at its worst, 7 on average, 5 at its least and is aching, sharp, tingling, burning, shooting. The patient reports that she feels like her back is "unstable." The patient reports no new motor or sensory deficits, no new bowel or bladder incontinence. Significant pain, difficulty with waking from sleep from the pain, distance walking, work activities as well as household activities and traveling with pain as well in the low back and right leg. The patient reports it is a 9 on a scale of 10 at its worst, 7 on average, 5 at its least and is a 7 today. The patient reports no new motor or sensory deficits, no new bowel or bladder incontinence or other complaints. PHYSICAL EXAMINATION: VITAL SIGNS: The patient's blood pressure is 128/88, pulse 74, respirations 16, temperature is 98.2 degrees Fahrenheit, height is 5 feet 4 inches, weight is 187 pounds. GENERAL: The patient is awake, alert, oriented, appropriate, very pleasant demeanor. HEENT: Head shows normocephalic, atraumatic. Extraocular movements intact and symmetrical. Oral cavity: Mucous membranes moist and pink. Dentition is intact. NECK: Shows anterior throat supple without palpable lymphadenopathy noted. Swallow reflex symmetrical. CHEST: Shows normal on inspection. Breath sounds clear to auscultation bilaterally. HEART: Shows S1, S2 clear. No murmurs auscultated. ABDOMEN: Soft, nontender, nondistended. No palpable organomegaly is noted. No rebound or guarding demonstrated. BACK: Shows spine grossly in the midline. Normal appearing thoracic kyphosis and lumbar lordotic curvature. Lumbar paraspinous muscle shows symmetrical on inspection, with palpation shows some moderate tenderness diffusely and well-healed surgical scar is again appreciated. EXTREMITIES: Lower extremities show deep tendon reflexes at 2+ in the patellar, 1+ in the tendo calcaneus tendons. Motor exam is strong with 5/5 dorsiflexion, extension, equal and symmetrical. Peripheral pulses are 1+ posterior tibia. No peripheral edema is noted bilaterally. Options were discussed with the patient. The patient's old chart was reviewed as her current medication regimen updated. Current review of systems updated today as well. We will proceed with a second lumbar epidural steroid injection today with fluoroscopic guidance. Risks were again discussed including, but not limited to bleeding, infection, possibility of epidural hematoma, subsequent neurologic compromise, dural puncture, headaches, spinal cord and/or nerve damage, side effects of steroid medication and poor results regarding pain control. The patient understands and wished to proceed. The patient will return to clinic in approximately 2 weeks for followup, was counseled on return appointment, activity level and side effects to be aware of. I also discussed potential if not significantly improved and the patient again refusing any further facet joint injections with a feeling of instability in her back, may follow up with her neurosurgery physician to reevaluate if not significantly improved. The patient understands and agrees, will follow up in approximately 2 weeks. We will evaluate at that time. DIAGNOSES: Lumbar radiculopathy with lumbar degenerative disk disease, post-lumbar laminectomy syndrome and lumbar spondylosis. PROCEDURES: Lumbar epidural steroid injection, translaminar approach at L5-S1 level using C-arm fluoroscopic guidance under sterile prep and drape using local anesthetic. MEDICATION INJECTED: A total of 120 mg Depo-Medrol plus 10 mL of preservative-free normal saline and 2 mL of Isovue for contrast. CONDITION AT DISCHARGE: Stable. The patient tolerated procedure well, had no complications. ANGIE MONTEIRO MD DR: ROSY/barbra JOB#: [id number] / [id number]
== END | disposition home or self-care (01) ==
LOC: PNCL 11:09
PROVIDERS: ATTEND Anesthesiology
DX: M51.16 Intervertebral disc disorders with radiculopathy, lumbar region (principal); M96.1 Postlaminectomy syndrome, not elsewhere classified; M47.27 Other spondylosis with radiculopathy, lumbosacral region; Z88.0 Allergy status to penicillin; Z88.8 Allergy status to other drugs, medicaments and biological substances
CPT/HCPCS: 62323; J1030; J1040; Q9965

== ENCOUNTER → 2019-01-11 | Outpatient (CLI) | payer BC ==
[~2019-01-11] MED LIST changes: +DICY10CA3 PO; +ERGO500027 PO; -IOHEXOL 180 MG/ML 10 ML VIAL. ONE; +LEVO150T5 PO; +RIZA10TA PO; -methylPREDNISolone ACETATE 40 MG/ML VIAL. ONE; -methylPREDNISolone ACETATE 80 MG/ML VIAL. ONE
--- NOTE | 2019-01-11 21:54 | PAIN ---
DATE OF SERVICE: 01/11/2019 PROGRESS NOTE FOR PAIN CLINIC: DIAGNOSES: Lumbar radiculopathy with lumbar degenerative disk disease, lumbar post-laminectomy syndrome and lumbar and lumbosacral spondylosis. HISTORY OF PRESENT ILLNESS: The patient is a 38-year-old female who returns for followup status post lumbar epidural steroid injection x 2 and facet joint injections on 06/13/2018. The patient had lumbar epidural steroid injection on 11/28/2018 and then again on 12/28/2018. The patient reports about 2-3 days of decreased pain after the epidural injections. Lumbar facet injections were better for a few days as well, more effective on the right side than the left, but the patient refused any further facet joint injections as the procedure itself was very uncomfortable for her. The patient reports otherwise pain is returning after just a few days following the injections in the low back, bilateral lower extremities, worse on the left side than the right. The patient reports pain goes back and forth on the right and left in the low back and into the left leg primarily. The patient reports it is a 9 on a scale of 10 at its worst, 8 on average, 7 at its least and is an 8 today. The patient reports it is sharp, tingling, burning, on and off in intensity, worse with walking, standing, change in positions. It is keeping her awake from sleep at night, every few hours wakes her up especially if she sleeps on her left side. The patient reports no new motor or sensory deficits, no new bowel or bladder incontinence or other complaints. PHYSICAL EXAMINATION: VITAL SIGNS: The patient's blood pressure 136/101, pulse 80, respirations 16, temperature is 98.0 degrees Fahrenheit, height is 5 feet 4 inches, weight is 186 pounds. GENERAL: The patient is awake, alert, oriented, appropriate, very pleasant demeanor. HEENT: Shows normocephalic, atraumatic. Extraocular movements intact and symmetrical. Oral cavity: Mucous membranes moist and pink. Dentition is intact. NECK: Shows anterior throat supple without palpable lymphadenopathy noted. Swallow reflex symmetrical. CHEST: Shows normal with inspection. Breath sounds clear to auscultation bilaterally. HEART: Shows S1, S2 clear. No murmurs auscultated. ABDOMEN: Soft, obese, nontender, nondistended. No palpable organomegaly is noted. No rebound or guarding demonstrated. BACK: Shows spine grossly in the midline. Normal appearing thoracic kyphosis, some minor flattening of lumbar lordotic curvature. Lumbar paraspinous muscle shows symmetrical on inspection, well-healed surgical scar is again appreciated. The patient shows good rotational motion of lumbar spine, both laterally as well as extension and flexion without significant difficulty or pain reported. EXTREMITIES: The patient's lower extremities show deep tendon reflexes at 2+ in the patellar, 1+ tendo calcaneus tendons. Motor exam is strong with 5/5 dorsiflexion, extension, quadriceps and hamstring flexion symmetrical bilaterally. The patient's back shows some moderate tenderness with extension of the lumbar spine, but not with forward flexion. Right and left lateral rotation is nontender bilaterally. Options were discussed with the patient. The patient's old chart was reviewed as her current medication regimen updated. Current review of systems updated today as well. We will hold on any further injections per her request. Again, the patient refusing any further facet joint injections, although the first ones were helpful temporarily after 2 lumbar epidural steroid injections, though significant pain returning after just 2 or 3 days following the procedures. We will reorder a new MRI scan of lumbar spine. It has been about 9 months since she has had one and the pain is not getting better with continued radicular qualities as well as low back pain. The patient would like to follow up with her neurosurgeon and we will get the MRI scan prior to this and she will make the arrangements to do this with her neurosurgeon as well. ANGIE MONTEIRO MD DR: ROSY/barbra JOB#: [id number] / [id number]
== END | disposition home or self-care (01) ==
LOC: PNCL 10:57
PROVIDERS: ATTEND Anesthesiology
DX: M51.16 Intervertebral disc disorders with radiculopathy, lumbar region (principal); M96.1 Postlaminectomy syndrome, not elsewhere classified; M47.897 Other spondylosis, lumbosacral region
CPT/HCPCS: G0463

== ENCOUNTER → 2019-01-18 | Outpatient (CLI) | payer BC ==
[~2019-01-18] MED LIST changes: +GADOBUTROL 7.5 MMOL/7.5 ML VIAL IV ONE
--- NOTE | 2019-01-18 12:03 | RAD ---
MRI of the lumbar spine without and with contrast 01/18/2019 CLINICAL HISTORY: Low back pain which radiates down both legs, right greater than left. History of previous lumbar spine surgery. TECHNIQUE: Unenhanced T1-weighted and T2-weighted sagittal and axial and inversion recovery sagittal images of the lumbar spine were obtained. After the intravenous administration 7.5 cc of Gadavist, enhanced T1-weighted sagittal and axial images of the lumbar spine were obtained. FINDINGS: Comparison study is dated 03/09/2018. The patient appears to have transitional vertebral anatomy. For the purposes of this dictation, the transitional vertebrae will be referred to by the letter T. A hypoplastic disc is seen at T-S1. Very mild S-shaped curvature of the thoracolumbar spine is seen. Degenerative signal changes and loss of height are seen involving the L5-T disc. Degenerative signal changes are seen within the marrow surrounding this disc. A 1 cm hemangioma is seen involving the transitional vertebral body. The conus medullaris is normal morphology, position, and signal characteristics. At the L1-2, L2-3 and L3-4 disc spaces there are minimal to mild generalized disc bulges. Degenerative changes are seen involving the facet joints bilaterally. There is mild ligamentum flavum hypertrophy bilaterally. These findings when combined do not result in significant central spinal canal or neural foraminal stenosis. At the L4-5 disc space there is a mild generalized disc bulge. This is eccentric to the left. Superimposed on this disc bulge is a left lateral focal disc protrusion. This measures 4 mm in AP diameter. Degenerative changes are seen involving the facet joints bilaterally. There is mild ligamentum flavum hypertrophy bilaterally. There is prominence of the posterior epidural fat. These findings when combined result in mild central spinal canal stenosis. Mild left neural foraminal stenosis is seen. The right neural foramen is patent. At the L5-T disc space, the patient is post left hemilaminotomy. Epidural scarring surrounds the left aspect of the thecal sac. Degenerative changes are seen involving the facet joints bilaterally. The small fluid collection is seen within the laminectomy site on the previous examination has resolved. Small facet joint effusions are seen bilaterally. Moderate right ligamentum flavum hypertrophy is noted. These findings when combined do not result in significant central spinal canal stenosis. No neural foraminal stenosis is seen. The T-S1 disc space is within normal limits. IMPRESSION: 1. Post left hemilaminotomy at L5-T. 2. The changes of degenerative disc disease are seen involving lumbar spine. These findings do not result in significant central spinal canal stenosis at any level. Mild left neural foraminal stenosis is seen at L4-5. Electronically signed by: Errol Johnson MD (01/18/2019 12:00 PM) [email or web address]
== END | disposition home or self-care (01) ==
LOC: MRI 09:45
PROVIDERS: ATTEND Anesthesiology
DX: M51.16 Intervertebral disc disorders with radiculopathy, lumbar region (principal); M48.061 Spinal stenosis, lumbar region without neurogenic claudication; Z98.890 Other specified postprocedural states; Z88.0 Allergy status to penicillin; Z88.1 Allergy status to other antibiotic agents
CPT/HCPCS: 72158; A9585

== ENCOUNTER → 2019-01-24 | Outpatient (CLI) | payer BC ==
[~2019-01-24] MED LIST changes: -GADOBUTROL 7.5 MMOL/7.5 ML VIAL IV ONE
--- NOTE | 2019-01-24 14:27 | RAD ---
EXAM: Lumbar spine, flexion and extension. HISTORY: Pain. COMPARISON: 01/18/2019 FINDINGS: Lateral neutral, flexion and extension views of the lumbar spine are obtained. There is a transitional lumbosacral segment. Based on the number of nonrib-bearing vertebral segments on the CT dated 10/01/2018, this transitional segment is considered a sacralized L5 segment with rudimentary L5-S1 disc. The transverse processes of this segment are sacralized common left of which articulates with the underlying sacrum. This is a normal variant. There is grade 1 anterolisthesis of L4 on L5 with flexion, measuring 3 mm. This returns to normal alignment in neutral and extension positions. The vertebral awad are normal in height and the nonrudimentary disc spaces are preserved. IMPRESSION: 1. Transitional lumbosacral segment, considered a partially sacralized L5 segment with rudimentary L5-S1 disc for this dictation. 2. Minimal grade 1 anterolisthesis of L4 on L5 during flexion. 3. No acute osseous finding. Electronically signed by: Kalee Bautista MD (01/24/2019 2:24 PM) [email or web address]
== END | disposition home or self-care (01) ==
LOC: LAB 11:02
PROVIDERS: ATTEND Neurological Surgery
DX: M54.5 Low back pain (principal)
CPT/HCPCS: 72100

== ENCOUNTER → 2019-03-20 | Outpatient (CLI) | payer BC ==
--- NOTE | 2019-03-21 03:16 | PAIN ---
DATE OF SERVICE: 03/20/2019 PROGRESS NOTE FOR PAIN CLINIC: DIAGNOSES: Lumbar radiculopathy with lumbar degenerative disk disease, post-laminectomy syndrome and lumbar spondylosis. HISTORY OF PRESENT ILLNESS: The patient is a 38-year-old female who returns for followup after recent visit with her neurosurgeon and note from him showing no further surgery indicated, but still significant pain in the low back and the right lower extremity. The patient reports it was still traveling into the posterior gluteus, posterior lateral thigh, lateral and anterior thigh as well in the posterior calf on the right side. The patient has had a facet joint injection as well as lumbar epidural steroid injections, most recently 12/28/2018 with improvement for only 1-2 days. The patient reports still significant pain in the low back, it is in the right leg. The patient reports it is tingling, aching, sharp, and shooting, rates a 10 on a scale of 10 at its worst, 8 on average, a 7 as its least over the past week and is a 7 today. 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 She stands on her feet all of her working day, is becoming almost unbearable do so. The patient reports it wakes her from sleep frequently. There is difficulty with distance walking, doing work activity, especially in household activities. The patient reports no new motor or sensory deficits, no new bowel or bladder incontinence. The patient with Crohn's disease also. PHYSICAL EXAMINATION: VITAL SIGNS: The patient's blood pressure 137/95, pulse 80, respirations 16, temperature 97.8 degrees Fahrenheit. Height is 5 feet 4 inches, weight is 189 pounds. GENERAL: The patient is awake, alert, oriented, appropriate, very pleasant demeanor. HEENT: Head normocephalic, atraumatic. Extraocular movements are intact, symmetrical. Oral cavity: Mucous membranes are moist and pink. Dentition is intact. NECK: Shows anterior throat supple without palpable lymphadenopathy noted. Swallow reflex symmetrical. CHEST: Shows normal with inspection. Breath sounds clear to auscultation bilaterally. HEART: Shows S1, S2 clear. No murmurs auscultated. ABDOMEN: Obese, soft, nontender, nondistended. No palpable organomegaly is noted. No rebound or guarding demonstrated. BACK: Shows spine grossly in the midline. Normal appearing thoracic kyphosis, some minor flattening of lumbar lordotic curvature. Well-healed surgical scarring noted in the lumbar distribution. Lumbar paraspinous muscle shows symmetrical on inspection and on palpation shows some moderate tenderness diffusely bilaterally, but only diffusely without radiation. EXTREMITIES: The patient's lower extremities show deep tendon reflexes 2+ in the patellar, 1+ tendo-calcaneus tendons. Motor exam is strong with 5/5 dorsiflexion, extension bilaterally. Peripheral pulses are 1+ posterior tibial. No peripheral edema is noted. Options were discussed with the patient. The patient's old chart was reviewed as her current medication regimen updated. Current review of systems updated today as well. We discussed with her neurosurgeon as well who is recommending no further surgery at this time. She has been to physical therapy, multiple procedures without significant long-term results. He is recommending potential consideration of a spinal cord stimulator. We will make arrangements to arrange a temporary lead placement for a trial. Spinal cord stimulation. The patient will see psychology first to clear for implantable devices and will wait for preauthorization in this patient with persistent radiculopathy, post-laminectomy syndrome and no further surgery required status post multiple injections with multiple physical therapies, etc., and have her return once psychiatric clearance is obtained for a spinal cord stimulator trial at that time. ANGIE MONTEIRO MD DR: ROSY/barbra JOB#: [id number] / [id number]
== END | disposition home or self-care (01) ==
LOC: PNCL 10:54
PROVIDERS: ATTEND Anesthesiology
DX: M51.16 Intervertebral disc disorders with radiculopathy, lumbar region (principal); M47.26 Other spondylosis with radiculopathy, lumbar region; M96.1 Postlaminectomy syndrome, not elsewhere classified
CPT/HCPCS: G0463

== ENCOUNTER → 2019-04-17 | Outpatient (CLI) | payer BC ==
[~2019-04-17] MED LIST changes: +LIDOCAINE 1% PF 2 ML VIAL. ONE
--- NOTE | 2019-04-18 05:02 | PAIN ---
DATE OF SERVICE: 04/17/2019 PROGRESS NOTE FOR PAIN CLINIC DIAGNOSES: Lumbar radiculopathy with lumbar degenerative disk disease and lumbar post-laminectomy syndrome with lumbar spondylosis. HISTORY OF PRESENT ILLNESS: The patient is a 39-year-old female who returns for followup status post previous lumbar epidural steroid injections and facet injections. The patient had done well, but the pain returned. I had a meeting with her neurosurgeon, not recommending any further surgery and recommending spinal cord stimulator trial and the patient has received preauthorization for that today. He has also had a psychological evaluation and placed in a good category for implantable devices. The patient would like to proceed and reports still significant pain in the low back, right lower extremity and left hip, rates at 10 on a scale of 10 at its worst in the last week, 9 on average, 7 at its least and is 9 today. The patient reports it is sharp, shooting, tingling, burning, being more constant, more unbearable in the low back and the right leg. The patient reports no new motor or sensory deficits, no new bowel or bladder incontinence or other complaints. PHYSICAL EXAMINATION: VITAL SIGNS: The patient's blood pressure is 132/93, pulse 79, respirations 16, temperature is 97.9 degrees Fahrenheit, weight is 187 pounds. GENERAL: The patient is awake, alert, oriented, appropriate, very pleasant demeanor. The patient is accompanied by her . HEENT: Head shows normocephalic, atraumatic. Extraocular movements is intact and symmetrical. Oral cavity, mucous membranes are moist and pink. Dentition is intact. NECK: Shows anterior throat supple without palpable lymphadenopathy noted. Swallow reflex symmetrical. CHEST: Shows normal with inspection. Breath sounds clear to auscultation bilaterally. HEART: Shows S1, S2 clear. No murmurs auscultated. ABDOMEN: Soft, nontender, nondistended. No palpable organomegaly is noted. No rebound or guarding demonstrated. BACK: Shows spine grossly in the midline. Normal-appearing thoracic kyphosis, mild flattening of the lumbar lordotic curvature. Well-healed midline surgical scar. Lumbar paraspinous muscle shows symmetrical on inspection; on palpation shows some moderate tenderness diffusely in the lower lumbar distribution only, slightly more on the right than the left ____ radiation. The patient has good rotational motion of lumbar spine, both laterally as well as extension and flexion without difficulty. EXTREMITIES: Lower extremities show deep tendon reflexes at 2+ in the patellar and tendo-calcaneus tendons. Motor exam is strong with 5/5 dorsiflexion, extension, quadriceps and hamstring flexion and symmetrical. Peripheral pulses are 1+ posterior tibial. No peripheral edema is noted. Options were discussed with the patient. The patient's old chart was reviewed as was her current medication regimen updated. Current review of systems updated today as well. We will proceed with a spinal cord stimulator trial x 2 leads under fluoroscopic guidance today. Risks were discussed including but not limited to bleeding, infection, possibility of epidural hematoma and subsequent neurological compromise, dural puncture headaches, spinal cord and/or nerve damage, side effects of steroid medication and poor results regarding pain control. The patient understands and wished to proceed. The patient will return to clinic in approximately 1 week for followup and removal of the spinal cord stimulator temporary leads and assessment at that time. PROCEDURE: Spinal cord stimulator temporary lead placement x 2, under sterile prep and drape using local anesthetic. The patient was consented with risks discussed including, but not limited to bleeding, infection, possibility of epidural hematoma and subsequent neurological compromise, dural punctures, headaches, spinal cord and/or nerve damage as well as full exposure to fluoroscopy and poor results regarding pain control. The patient in the prone position under sterile prep and drape and technique, the lumbar spine was visualized and accounted and thoracic spine with an external marker placed at the level of T8 and at the level of the L2-L3 interspace was visualized and using 1% lidocaine, topically anesthetized the skin and subcutaneous tissues using a 14-gauge GoSavetead epidural needle with stylet and epidural space was entered at this level with preservative-free normal saline, loss of resistance technique without difficulty and with negative aspiration. First spinal cord stimulator lead was then threaded through the needle into the midline and posterior with fluoroscopic lateral views to confirm this with the tip of the first spinal cord stimulator lead. The superior tip electrode at the superior endplate of T8. I again confirmed posterior position with C-arm lateral views. Sacrum was entered on the left of midline at the same level L2-L3, preservative-free normal saline, loss of resistance technique with negative aspiration and second wire was then threaded under direct visualization once again to lie with the superior electrode of the wire at the superior endplate of T9. This was confirmed in posterior placement with lateral views on the C-arm as well. [place] removed. Stylets removed. Sutures used to secure the leads in right and left and then sterilely bandaged with Tegaderm, Mastisol and then sterilely bandaged with gauze and tape. CONDITION AT DISCHARGE: Stable. The patient tolerated the procedure well, had no immediate complications, had good coverage with [employer] field sales representative to program the stimulator prior to her discharge. ANGIE MONTEIRO MD DR: ROSY/barbra JOB#: [id number] / [id number]
== END ==
LOC: PNCL 12:34
PROVIDERS: ATTEND Anesthesiology
DX: M51.16 Intervertebral disc disorders with radiculopathy, lumbar region (principal); M96.1 Postlaminectomy syndrome, not elsewhere classified; M47.26 Other spondylosis with radiculopathy, lumbar region
CPT/HCPCS: 63650; C1897

== ENCOUNTER → 2019-04-24 | Outpatient (CLI) | payer BC ==
[~2019-04-24] MED LIST changes: -LIDOCAINE 1% PF 2 ML VIAL. ONE
--- NOTE | 2019-04-24 23:00 | PAIN ---
DATE OF SERVICE: 04/24/2019 PROGRESS NOTE FOR PAIN CLINIC DIAGNOSES: Lumbar radiculopathy with lumbar degenerative disk disease and post-lumbar laminectomy syndrome with spondylosis. HISTORY OF PRESENT ILLNESS: The patient is a 39-year-old female who returns for followup status post spinal cord stimulator temporary lead placement last week. The patient returns today 1 week later for removal and reassessment. The patient reports about 80% improvement with the pain reduced in her low back and legs. The patient reports she is very pleased with the progress. It took a few days to get the program readjusted, but was doing very well over the past 3-4 days. The patient reports she has had significant pain reduction with all of her activities. She has been very active, has had a lot of stress over the last week, a lot of activity as well as traveling, walking, standing, sleeping, doing much better, about 80% overall. The patient reports pain is 7 on a scale of 10 at its worst, 4 on average over the past week and 2 at its least and is 2 today. The patient reports tingling, burning, cramping, tight and on and off in intensity. The patient reports no new motor or sensory deficits, no new changes. PHYSICAL EXAMINATION: VITAL SIGNS: The patient's blood pressure is 138/87, pulse 78, respirations 18, temperature 97.8 degrees Fahrenheit. Height is 5 feet 4 inches, weighs 191 pounds. GENERAL: The patient is awake, alert, oriented, appropriate, very pleasant demeanor. HEENT: Head shows normocephalic, atraumatic. Extraocular movements are intact and symmetrical. CHEST: Shows normal on inspection. Breath sounds clear bilaterally. HEART: Shows S1, S2 clear. BACK: Shows spine grossly in the midline. The patient's bandage was taken down under sterile technique to expose the spinal cord stimulator leads. Sutures were cut under sterile prep as well and technique. Spinal cord stimulator leads were removed x 2 with tips intact each. Site was clean and dry, no erythema, no tenderness, no redness, no discharge, no signs of infection. The patient shows good rotational motion of lumbar spine, both laterally as well as extension and flexion. The patient's site was then sterilely cleaned with alcohol swabs and bandaged under sterile technique as well. Options were discussed with the patient. The patient's old chart was reviewed as was her current medication regimen updated. Current review of systems updated today as well. We will make arrangements for permanent spinal cord stimulator placement as she is quite pleased with the progress in the pain reduction that she achieved with the spinal cord stimulator trial and we will make those arrangements. ANGIE MONTEIRO MD DR: ROSY/barbra JOB#: [id number] / [id number]
== END | disposition home or self-care (01) ==
LOC: PNCL 12:46
PROVIDERS: ATTEND Anesthesiology
DX: M51.16 Intervertebral disc disorders with radiculopathy, lumbar region (principal); M47.26 Other spondylosis with radiculopathy, lumbar region; M96.1 Postlaminectomy syndrome, not elsewhere classified
CPT/HCPCS: G0463

== ENCOUNTER → 2019-06-19 | Outpatient (CLI) | payer BC ==
[2019-06-16 14:20] VITALS: BP 139/83
[~2019-06-19] MED LIST changes: +LEVO137C PO; +OXYC1TAB19 PO
--- NOTE | 2019-06-20 07:24 | PAIN ---
DATE OF SERVICE: 06/19/2019 PROGRESS NOTE FOR PAIN CLINIC DIAGNOSES: Lumbar radiculopathy with lumbar degenerative disk disease and lumbar post-laminectomy syndrome. HISTORY OF PRESENT ILLNESS: This is a 39-year-old female who underwent a spinal cord stimulator system implantation with generator on 06/16/2019. The patient called the clinic earlier today reporting significant hemorrhaging and soaked bandages with blood on her back from the surgery. The patient reports the pain has been very well controlled; however, about 100% decreased pain in her legs with the spinal cord stimulator. We asked her to come in today to examine the incision site and she did with report of very good pain control and really only taking several of the Percocet which was prescribed for her postoperatively and just 1 Naprosyn today and has not had significant increase in pain in the incision sites or in her regular pain with her back and leg which is doing much better. The patient reports no other changes. PHYSICAL EXAMINATION: VITAL SIGNS: The patient's blood pressure is 117/80, pulse 85, respirations 18, temperature 98.2 degrees Fahrenheit, height is 5 feet 4 inches, weight is 188 pounds. GENERAL: The patient is awake, alert, oriented, appropriate, very pleasant demeanor. BACK: The patient's back shows spine grossly in the midline. The patient's incision sites were examined and showed only moderate amount of old blood on the gauze over the Steri-Strips and under the Tegaderms without any leakage around the Tegaderm as well as the dressing whatsoever. Very mild soreness around the placement of the spinal cord stimulator battery and the incision site for that and the spinal cord stimulator leads. Bandage was sterilely taken down, cleaned, and redressed under sterile technique with additional Steri-Strips on the transverse incision for the battery pocket and a new sterile Tegaderms were applied. No active hemorrhaging was noted, very minimal erythema around the edges of the incision sites consistent with postop day #3. Normal appearance on postoperative healing. The patient was counseled as to activity level as well as taking care of the wound sites and the bandages and to call with any other concerns. The patient understands and agrees and will follow up in approximately 1 week as scheduled. ANGIE MONTEIRO MD DR: ROSY/barbra JOB#: [id number] / [id number]
== END | disposition home or self-care (01) ==
LOC: PNCL 13:42
PROVIDERS: ATTEND Anesthesiology
DX: M51.16 Intervertebral disc disorders with radiculopathy, lumbar region (principal); M96.1 Postlaminectomy syndrome, not elsewhere classified
CPT/HCPCS: G0463

== ENCOUNTER → 2019-06-26 | Outpatient (CLI) | payer BC ==
[2019-06-16 14:20] VITALS: BP 139/83
--- NOTE | 2019-06-26 23:51 | PAIN ---
DATE OF SERVICE: 06/26/2019 PROGRESS NOTE FOR PAIN CLINIC DIAGNOSES: Lumbar radiculopathy with lumbar degenerative disk disease and lumbar post-laminectomy syndrome and spondylosis. HISTORY OF PRESENT ILLNESS: The patient is a 39-year-old female who returns for followup status post spinal cord stimulator implantation and generator implantation as well. The patient is now just over one week postop, doing well. The patient reports stimulation is doing very well in the low back and the right lower extremity, did have one episode where it was re-tuned last week with her product support sales representative from the [employer], but now back to about 80% improvement overall. The patient reports still some pain in the low back, tingling, burning, sharp, radiating in the right leg and sometimes severe a few days ago, but now she is doing much better. The patient reports her pain is a 2 on a scale of 10. The patient reports she is sleeping better at night, increase in activity gradually as she still has some sore postoperative pain in the low back itself. The patient reports no new changes or other complaints. PHYSICAL EXAMINATION: VITAL SIGNS: The patient's blood pressure is 119/81, pulse 71, respirations 16, temperature 98.4 degrees Fahrenheit. Height is 5 feet 4 inches. GENERAL: The patient is awake, alert, oriented, appropriate, very pleasant demeanor. HEENT: Shows normocephalic, atraumatic. Extraocular movements are intact and symmetrical. Oral cavity: Mucous membranes are moist and pink. NECK: Shows anterior throat supple. CHEST: Shows normal on inspection. Breath sounds are clear to auscultation bilaterally. HEART: Shows S1 and S2 clear. BACK: Shows spine grossly in the midline. The patient's bandages were taken down, Tegaderm was removed with very appropriate appearing postoperative surgical wounds, very minimal erythema at the edges of the wounds with some minor bruising over the right wound with a pocket formation but no significant erythema, no drainage, no significant tenderness with palpation and no swelling with each incisional site. The patient's Steri-Strips are intact on the vertical lumbar wound, a horizontal wound for the generator battery. The Steri-Strips were removed with Tegaderm removal. These were replaced under sterile technique and a gauze and paper tape applied over the areas to allow some air to breathe through the gauze for the wounds themselves. The patient will allow to get the wounds wet now, but no scrubbing and no soaking and to blot dry only. The patient will still be cautious with bending, stretching, extension and flexion of the lumbar spine for the next several weeks, a total of 6 weeks total this has elapsed. The patient will continue to follow up as necessary, stimulation retuning if necessary as well. We discussed this at length with her today and she understands and will follow up at this time in approximately 4 weeks or sooner if necessary. ANGIE MONTEIRO MD DR: ROSY/barbra JOB#: [id number] / [id number]
== END | disposition home or self-care (01) ==
LOC: PNCL 14:15
PROVIDERS: ATTEND Anesthesiology
DX: M51.16 Intervertebral disc disorders with radiculopathy, lumbar region (principal); M47.26 Other spondylosis with radiculopathy, lumbar region; M96.1 Postlaminectomy syndrome, not elsewhere classified
CPT/HCPCS: G0463

== ENCOUNTER → 2020-04-04 | Outpatient (CLI) | payer BC ==
[2019-06-16 14:20] VITALS: BP 139/83
[~2020-04-04] MED LIST changes: +LEFL10TA13 PO; -LEFLUNOMIDE20 MG PO
--- NOTE | 2020-04-04 12:28 | CONS ---
DATE OF CONSULTATION: 04/04/2020 PROGRESS NOTE FOR PAIN CLINIC DIAGNOSES: Lumbar radiculopathy with lumbar degenerative disk disease, lumbar post-laminectomy syndrome and lumbar spondylosis. HISTORY OF PRESENT ILLNESS: The patient is a 39-year-old female who returns for followup status post spinal cord stimulator placement. The patient had permanent placement on 06/16/2019 and reports she did very well afterwards until the last about 2 months ago, had a reprogramming with her [employer] sales representative livestock, which did much better with her pain in her right low back and right leg, until the last about 2-3 weeks, the pain has been returning. She has 3 programs. She uses on her stimulator. She used all 3 of these and given them each 2 days or so to work and has had no decrease in pain. The patient reports it is in the low back, right hip, right leg, right anterior thigh, anterior groin and lateral thigh and some in the gluteus as well on the right side. The patient reports it is worse with walking, standing, changing positions, getting up and down. It is very difficult as far as standing, sitting, even daily activities are becoming much more difficult. The patient reports her pain is a 9 on a scale of 10 at its worst over the past week, 8 on average, 6 at its least and is an 8 today. The patient reports it is radiating, becoming more severe, aching and sharp in the low back and the right leg. The patient reports no loss of motor function, no bowel or bladder incontinence. PHYSICAL EXAMINATION: VITAL SIGNS: The patient's blood pressure 126/98, pulse 78, respirations 18, temperature is 98.9 degrees Fahrenheit, height is 5 feet 4 inches, weight is 199 pounds. GENERAL: The patient is awake, alert, oriented, appropriate, very pleasant demeanor. HEENT: Shows normocephalic, atraumatic. Extraocular movements are intact and symmetrical. Oral cavity: Mucous membranes are moist and pink. Dentition is intact. NECK: Shows anterior throat supple without palpable lymphadenopathy noted. Swallow reflex symmetrical. CHEST: Shows normal on inspection. Breath sounds are clear bilaterally. HEART: Shows S1, S2 clear. No murmurs auscultated. ABDOMEN: Soft, nontender, nondistended. No palpable organomegaly is noted. There is no rebound or guarding demonstrated. BACK: Shows spine grossly in the midline. Normal appearing thoracic kyphosis and minor flattening of lumbar lordotic curvature with a well-healed surgical scar noted. Easily palpable spinal cord stimulator and generator is in the right paramedian distribution of the lumbar spine, which has well-healed surgical scar as well and is nontender with palpation. The patient shows good rotational motion of lumbar spine, both laterally as well as extension and flexion without significant increase in pain. EXTREMITIES: Lower extremities show deep tendon reflexes at 2+ in the patellar and tendo calcaneus tendons are 1+. Motor exam is strong with 5/5 dorsiflexion, extension, quadriceps and hamstring flexion. Peripheral pulses are 1+. No peripheral edema is noted bilaterally. We also performed with fluoroscopic C-arm for lead placement and generator verification placement today with good placement in the midline and right midline with the spinal cord stimulator leads at the level of T8 superior endplate and T9 superior endplate and posterior in the epidural space just to verify placement of the leads and no movement, which was verified today. PLAN: Options were discussed with the patient. The patient's old chart was reviewed as her current medication regimen updated. Current review of systems updated today as well and we will wait for reprogramming with the patient's spinal cord stimulator [employer] sales representative livestock. If not significantly improved with reprogram measures, we will plan on MRI scan of the lumbar spine to differentiate any new pathology that may have occurred and could explain the right radiculopathy she is experiencing. ANGIE MONTEIRO MD DR: ROSY/barbra JOB#: [id number] / [id number]
== END ==
LOC: PNCL 09:59
PROVIDERS: ATTEND Anesthesiology
DX: M51.16 Intervertebral disc disorders with radiculopathy, lumbar region (principal); M96.1 Postlaminectomy syndrome, not elsewhere classified; M47.26 Other spondylosis with radiculopathy, lumbar region
CPT/HCPCS: G0463

== ENCOUNTER → 2020-04-18 | Outpatient (CLI) | payer BC ==
[2019-06-16 14:20] VITALS: BP 139/83
--- NOTE | 2020-04-18 12:07 | PAIN ---
DATE OF SERVICE: 04/18/2020 PROGRESS NOTE FOR PAIN CLINIC DIAGNOSES: Lumbar radiculopathy with lumbar degenerative disk disease and lumbar post-laminectomy syndrome with lumbar spondylosis. HISTORY OF PRESENT ILLNESS: The patient is a 40-year-old female who returns for followup status post recent reprogramming with [employer] stimulator cordage sales representative. We had x-rayed her leads showing good placement of the leads as well as the intact integrity of the leads and the generator on her last visit, which was 04/04/2020. Reprogramming has not been able to cover the new pain. She is having significant pain and weakness in the right lower extremity, mostly in the posterior gluteus, posterior thigh, posterior calf with numbness and tingling in the foot and significant disability with putting any weight on it at all. She was unable to get up from a seated position last night. She relates that her had to carry her from a seated position to her bed. The patient is limping significantly, favoring the right lower extremity on her presentation this morning as well. The patient reports significant fatigability of the right leg. No bowel or bladder incontinence at this time, but significant weakness in the right leg. No overt muscle loss, but the pain is limiting her significantly from activity. The patient reports it is 10 on a scale of 10 at its worst in the past week, 9 on average, 8 at its least and is a 9 today. The patient reports it is burning, sharp, shooting, radiating in the right leg. As noted it is severe and unbearable, awaken her from sleep about every 2-4 hours. PHYSICAL EXAMINATION: VITAL SIGNS: The patient's blood pressure 141/95, pulse 76, respirations 18, temperature 98.3 degrees Fahrenheit, height is 5 feet 4 inches, weight is 199 pounds. GENERAL: The patient is awake, alert, oriented, appropriate, very pleasant demeanor. HEENT: Shows normocephalic, atraumatic. Extraocular movements are intact and symmetrical. Oral cavity shows mucous membranes moist and pink. Dentition is intact. NECK: Shows anterior throat supple without palpable lymphadenopathy noted. Swallow reflex symmetrical. CHEST: Shows normal on inspection. Breath sounds are clear bilaterally. HEART: Shows S1, S2 clear. No murmurs auscultated. ABDOMEN: Soft, obese, nontender, nondistended. BACK: Shows spine grossly in midline. Lumbar paraspinous muscle shows symmetrical on inspection with a well-healed surgical scarring noted. Easily palpable spinal cord stimulator as well. The generator that is with well-healed surgical scarring also in the right paramedian distribution that has the generator. EXTREMITIES: Lower extremities show deep tendon reflexes at 2+ in the patellar tendons. Tendo calcaneus tendons are 1+. Motor exam is approximately 4 on a scale of 5 on the right, 5/5 on the left, quadriceps and hamstring flexion 3-4 on a scale on the right with significant pain with hip extension and flexion on the right side only with radiating pain, posterior gluteus and posterior thigh. Peripheral pulses are 1+. No peripheral edema is noted. Options were discussed with the patient. The patient's old chart was reviewed as her current medication regimen updated. Current review of systems updated today as well. We will order MRI scan of lumbar spine with and without contrast as the patient is postsurgical and does have a spinal cord stimulator placed, but with significant new radiculopathy in the right lower extremity and weakness of the right lower extremity as well. Once MRI scan is obtained, we will review the results. Potential referral for neurosurgical evaluation pending. ANGIE MONTEIRO MD DR: ROSY/barbra JOB#: [id number] / [id number]
--- NOTE | 2020-04-18 13:21 | RAD ---
MRI lumbar spine without contrast HISTORY: Back pain, right leg radiculopathy. COMPARISON: MRI lumbar spine January 18, 2019. FINDINGS: Only axial and sagittal STIR sequences were acquired based on the required imaging parameters of the patient's thoracic spinal stimulator. Absence of nonfat suppressed T1 and T2-weighted sequences decreases the ability to characterize pathology. Diagnostic information remains. For consistency in numbering the vertebra to the prior report, the most inferior lumbarized vertebral body was classified as T. There is a rudimentary T-S1 intervertebral disc. Lumbar vertebral body height and alignment intact. Dorsal column stimulator electrodes enter at the L2-L3 interlaminar space and extending superiorly to the lower thoracic spinal side [id number] with susceptibly artifact limiting assessment of the spinal canal and posterior elements at this region. In light of this diagnostic information still remains. Lumbar vertebral height and alignment intact. There is mild bony edema at L5-T associated with facet arthrosis. Limited visualization of the conus from the artifact. Cauda equina is grossly unremarkable. Disc disease described below. L1-L2: Mild disc desiccation and disc height loss, no disc bulge or herniation, no spinal canal stenosis. L2-L3, normal. L3-L4: Normal. L4-L5: Mild lateral bulging disc annulus, facet hypertrophy and spurring, with superimposed left lateral shallow broad-based disc protrusion with disc annulus tear. Mild prominence of the dorsal epidural fat. Mild spinal canal stenosis dural sac diameter is 9 mm. Moderate left neural foraminal stenosis. Mild right neural foraminal stenosis. Stable. L5-T: Posterior disc height loss, disc desiccation, left eccentric disc bulge along with paracentral and foraminal disc annulus tear and broad-based disc protrusion. Lateral vertebral endplate spurring. Facet hypertrophy, facet joint fluid and spurring. Left L5 laminotomy and focal resection of the ligament flavum. Right ligament flavum thickening. There is mild stenosis of the left lateral recess with mild narrowing the dural sac about the descending left L5 nerve roots although similar to the prior postoperative study. Right lateral recess patent. There is mild spinal canal stenosis midline dural sac diameter is 10 mm although this is stable to the prior study. Moderate right neural foraminal stenosis. Moderate to severe left neural foraminal stenoses with partial effacement of perineural fat about the left L5 nerve, stable. T10-S1: Unremarkable. IMPRESSION: Transitional lumbosacral anatomy. Left L5 laminotomy again demonstrated. Lower lumbar disc disease and facet arthrosis associated with mild spinal canal stenosis, and moderate to severe neural foraminal stenoses, as described above. Electronically signed by: Tonio Jamil MD (04/18/2020 1:19 PM) [id number]
== END ==
LOC: PNCL 09:50
PROVIDERS: ATTEND Anesthesiology
DX: M51.16 Intervertebral disc disorders with radiculopathy, lumbar region (principal); M96.1 Postlaminectomy syndrome, not elsewhere classified; M47.816 Spondylosis without myelopathy or radiculopathy, lumbar region
CPT/HCPCS: 72148; G0463

== ENCOUNTER → 2020-05-07 | Outpatient (CLI) | payer BC ==
[2019-06-16 14:20] VITALS: BP 139/83
[~2020-05-07] MED LIST changes: +IOHEXOL 180 MG/ML 10 ML VIAL. IT ONE; +LIDOCAINE 1% Multi-Dose 20 ML VIAL. ID ONE
--- NOTE | 2020-05-07 10:29 | KCIC ---
CT lumbar spine exam History: Lumbar radiculopathy, bilateral radiculopathy, leg weakness, loss of bowel control Technique: CT imaging was performed of the lumbar spine after injection for lumbar myelogram. Multiplanar reconstruction images are submitted. Exposure: One or more of the following individualized dose reduction techniques were utilized for this examination: 1. Automated exposure control 2. Adjustment of the mA and/or kV according to patient size 3. Use of iterative reconstruction technique. Comparison: MRI lumbar spine exam January 18, 2019 Findings: There is appearance of transitional anatomy. There are small bilateral ribs at what is considered T12, assumption of 5 lumbar vertebral bodies. There is a formed although somewhat rudimentary intervertebral disc space at what is considered L5-S1. Lumbar vertebral body stature and AP alignment are within normal limits. There is mild levoscoliosis centered near L2-3. There are thoracic spinal stimulator leads with electronic device on the right posteriorly in the subcutaneous fat at the L2-3 levels, leads entering into the posterior aspect of the spinal canal at the L1-2 level, lead tips not included on this exam. Conus terminates at the inferior aspect of L1. There is mild L4-5 degenerative disc disease. There is a tiny about 1 mm inferior left renal calculus, also tiny 1 mm superior right renal calculus. T12-L1: Spinal canal and neural foramina are adequate. L1-L2: There is mild facet degenerative change. Spinal canal and the neural foramina are adequate. L2-L3: There is xjii-ec-rqmdjcty facet degenerative change. Spinal canal and neural foramina are overall adequate. L3-L4: There is mild bilateral facet degenerative change. Spinal canal is overall adequate. There is pmur-nl-hqbpmidl narrowing of the left neural foramen from posteriorly by facet. Right neural foramen is overall adequate. L4-L5: There is left spondylolysis. There is left laminectomy defect. There is moderate to severe facet degenerative change bilaterally. There is mild buckling of the ligamentum flavum. There is minimal disc osteophyte complex, somewhat greater in the far left lateral recess. There is mdwq-aq-ugntttuy narrowing of the far left lateral recess primarily from posteriorly by facet. There is very mild narrowing of the far right lateral recess from posteriorly by facet. There is moderate to severe narrowing of the left neural foramen due to disc osteophyte complex and facet degenerative change with effacement of perineural fat surrounding the exiting left L4 nerve root. There is mild narrowing of the right neural foramen from posteriorly by facet. L5-S1: Spinal canal and the neural foramina are adequate. Impression: 1. There appears to be transitional anatomy, formed although rudimentary intervertebral disc space at what is considered L5-S1. There is mild L4-5 degenerative disc disease. 2. There is vhfg-ib-povmrihx narrowing of the far left lateral recess at L4-5, very mild narrowing of the far right lateral recess at L4-5 as described. 3. There is moderate to severe narrowing of the left L4-5 neural foramen, hliq-to-kxmvjdtp narrowing on the left at L3-4, and minimal narrowing on the right at L4-5 as described. 4. There is multilevel lumbar facet degenerative change. There is mild lumbar levoscoliosis. 5. There are small bilateral renal calculi. 6. There are thoracic spinal stimulator leads. Electronically signed by: Brian Malik MD (05/07/2020 10:26 AM) [id number]
--- NOTE | 2020-05-07 10:43 | KCIC ---
Lumbar Myelogram History: Lumbar radiculopathy, leg weakness, loss of bowel control Technique: Patient was informed of the risks of the procedure to include pain, infection, bleeding, seizures, nerve root injury, and allergic reaction to the contrast. All questions were answered. Patient signed a written consent form for a lumbar myelogram. The patient was placed in a prone oblique position on the fluoroscopy table. External site of the lower back was prepped and draped in the usual sterile fashion. Betadine was utilized for cleansing solution. 1% lidocaine was utilized for local anesthesia at the anticipated site of puncture left L2-3 interlaminar space. A 19-gauge guiding needle was advanced into the soft tissues. Through the guiding needle, a 25 gauge Arabella needle was advanced until there was return of cerebral spinal fluid. Approximately 15 cc of Omnipaque 180 were then injected during fluoroscopic visualization. The needles were removed. Fluoroscopic spot images including standing images were acquired of the lumbar spine. The patient was then transferred to the CT department for CT examination of the lumbar spine. There were no immediate complications. Fluoroscopy time: 1 minute 25 seconds, 18 images Findings: There was no evidence of myelographic block. There is thoracic spinal stimulator device in the right posterior soft tissues with leads coursing into the spinal canal at the L1-2 level, leads terminating in thoracic spine. There is mild lumbar levoscoliosis. Most inferior formed although rudimentary intervertebral disc space is considered L5-S1. There is small anterior extra defect at L4-5. There is negligible anterior spondylolisthesis at L4-5 created with extension and mostly reduced with flexion. There is relative decreased contrast opacification of the bilateral L4 nerve root sleeves at L4-5. Impression: 1. Most inferior formed although rudimentary intervertebral disc space is considered L5-S1. There is small anterior extradural defect at what is considered L4-5. There is negligible anterior spondylolisthesis at L4-5 created with extension and mostly reduced with flexion. There is relative decreased contrast opacification of the bilateral L4 nerve root sleeves at L4-5. 2. There is thoracic spinal stimulator device and leads. Electronically signed by: Brian Malik MD (05/07/2020 10:41 AM) [id number]
== END | disposition home or self-care (01) ==
LOC: KCIC 08:31
PROVIDERS: ATTEND Neurological Surgery
DX: M54.16 Radiculopathy, lumbar region (principal)
CPT/HCPCS: 62304; 72132; J3490; Q9965

== ENCOUNTER → 2020-06-07 | Outpatient (CLI) | payer BC ==
[2019-06-16 14:20] VITALS: BP 139/83
[~2020-06-07] MED LIST changes: -IOHEXOL 180 MG/ML 10 ML VIAL. IT ONE; -LIDOCAINE 1% Multi-Dose 20 ML VIAL. ID ONE; +METH25VI27 SQ
[2020-06-07 15:08] LABS: BASO # 0.1 x10^3/uL (0.0-0.2); BASO % 1 % (0-3); EOS # 0.2 x10^3/uL (0.0-0.7); EOS % 2 % (0-3); HEMATOCRIT 39.4 % (36.0-47.0); HEMOGLOBIN 13.8 g/dL (12.0-15.5); LYMPH # 2.5 x10^3/uL (1.0-4.8); LYMPH % 34 % (24-48); MEAN CORPUSCULAR HEMOGLOBIN 32 pg (25-35); MEAN CORPUSCULAR HGB CONC 35 g/dL (31-37); MEAN CORPUSCULAR VOLUME 93 fL (79-100); MONO # 0.8 x10^3/uL (0.0-1.1); MONO % 10 % (0-9); NEUT % 53 % (31-73); PLATELET COUNT 329 x10^3/uL (140-400); RED BLOOD COUNT 4.26 x10^6/uL (3.50-5.40); RED CELL DISTRIBUTION WIDTH 13.6 % (11.5-14.5); WHITE BLOOD COUNT 7.5 x10^3/uL (4.0-11.0)
[2020-06-07 15:20] LABS: PROTHROMBIN TIME PATIENT 12.8 SEC (11.7-14.0)
[2020-06-07 15:24] LABS: ALBUMIN 3.7 g/dL (3.4-5.0); CALCIUM 8.7 mg/dL (8.5-10.1); GFR 61.4; POTASSIUM 3.7 mmol/L (3.5-5.1); TOTAL BILIRUBIN 0.4 mg/dL (0.2-1.0); TOTAL PROTEIN 7.5 g/dL (6.4-8.2)
== END | disposition home or self-care (01) ==
LOC: SURGPAT 14:21
PROVIDERS: ATTEND Neurological Surgery
DX: U07.1 COVID-19 (principal); M54.5 Low back pain; M48.061 Spinal stenosis, lumbar region without neurogenic claudication; M47.26 Other spondylosis with radiculopathy, lumbar region; M43.26 Fusion of spine, lumbar region; Z88.0 Allergy status to penicillin
CPT/HCPCS: 36415; 80053; 85025; 85610; 85730; 87641; C9803; U0003

== ENCOUNTER 2020-06-13 08:30 | Inpatient (IN) | payer BC ==
[~2020-06-13] VITALS: Ht 162.6 cm; Wt 90.3 kg
--- NOTE | 2020-07-12 19:12 | HP ---
ADMIT DATE: 07/15/2020 PREOPERATIVE HISTORY AND PHYSICAL DATE OF SURGERY: 07/15/2020. HISTORY OF PRESENT ILLNESS: The patient is a pleasant 40-year-old who is slowly worsening with regard to her lower back pain and pain which radiates into her lower extremities. She says that currently the right side is more involved than the left because of spinal cord stimulator, has been somewhat more helpful on the left side. Her pain is in her back, her hips and into the inguinal regions bilaterally. There is also pain in the anterior thighs. Since I saw her last, she said that she developed some bladder symptoms and loss of bladder function twice. Her history includes in 01/2018, lumbar microdiskectomy at L5-S1 followed by placement of a spinal cord stimulator in 06/2019. Currently, she rates her pain as an 8/10. Being in a seated position or standing increases her pain. She has had her spinal cord stimulator adjusted multiple times. She is slowly worsening despite this. On her previous MRI scan, there is disc bulging on the right at L5-S1. I had a lumbar myelogram and post-myelogram CT scan performed. PAST MEDICAL HISTORY: Arthritis, cold sores and fever blisters, headaches and migraines, rheumatoid arthritis, stomach and intestinal disease, thyroid disease, hypertension. PAST SURGICAL HISTORY: She has a right lateral knee release, cholecystectomy, hysterectomy, thyroidectomy, tonsillectomy and adenoidectomy, varicose vein procedure and RFA in lumbar spine, lumbar microdiscectomy L5-S1 on the left in 01/2018, a spinal cord stimulator placement in 06/2019. FAMILY HISTORY: Cancer, heart problems or disease, hypertension and migraine headaches. 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 She is . She exercises weekly. She denies substance abuse. Denies tobacco use. Drinks alcohol 1-2 times per year. ALLERGIES: BICILLIN. CURRENT MEDICATIONS: Tirosint, Plaquenil, Zofran, folic acid, vitamin D, methotrexate, Maxalt and Remicade. REVIEW OF SYSTEMS: A 12-point review of systems was obtained and is noncontributory except for that mentioned above. PHYSICAL EXAMINATION: NEUROSURGERY EXAMINATION: GENERAL APPEARANCE: Alert, pleasant, no acute distress. HEAD: Normocephalic and atraumatic. SKIN: Warm and dry, well-healed lumbar incision. MUSCULOSKELETAL: Lumbar paraspinal muscle bulk is normal, restricted range of motion of the lumbar spine, dzec-xh-srahrunb tenderness of the lower lumbar spine palpation, normal range of motion of the lower extremities bilaterally. EXTREMITIES: No clubbing, cyanosis or edema. NEUROLOGIC: Alert and oriented x 3, normal recent and remote memory. Strength 5/5 in bilateral lower extremities. Sensory was intact to light touch in bilateral lower extremities. Reflexes are present and symmetric in lower extremities bilaterally. Negative straight leg raising on the right. Negative straight leg raising on the left. Antalgic gait favoring her right leg. IMAGING: I reviewed a lumbar myelogram. She does have a transitional anatomy and what was called L5-S1, for the purposes of this study is now called L4-L5. She has a moderate narrowing of the left lateral recess to a lesser extent, the right lateral recess at L4-L5. The neural foramen on the left is severely narrowed and moderately narrowed at L3-L4 on the left. There is a mild narrowing on the right L4-L5. ASSESSMENT/PLAN: The patient is having significant difficulty. She is having increasing back and bilateral leg pain, now worse on the right. She has a spinal cord stimulator in place, which does help to a degree. However, despite this, she is now developing problems with loss of bladder continence. I told her that there were few options other than to decompress combined with an instrumented lumbar fusion at L4-L5, the previously operated level. She understands. She would like to go ahead. I did outline the risks of the surgery. I explained that I could perform surgery and the result may be that she is no better or even worse than she is now. She understands. She would like to proceed. We will make the arrangements. SHIRA QUEZADA MD DR: YENIFER/barbra JOB#: [id number] / [id number]
[2020-07-15] VITALS (8 sets, daily range): BP systolic 100–126; BP diastolic 57–85
[2020-07-15] MEDS ORDERED: BACITRACIN 50,000 UNIT in IV NORMAL SALINE 1000ML BAG 1,000 ML IRR ONE (06:00)
[2020-07-15] MEDS ORDERED: GELATIN SPONGE SIZE 100. ONE (06:41)
[2020-07-15] MEDS ORDERED: THROMBIN TOPICAL 20,000 UNIT SPRAY.SYRN KIT TP ONE (06:42)
[2020-07-15] MEDS ORDERED: KETOROLAC 60 MG/2 ML VIAL. ONE (06:42)
[2020-07-15] MEDS ORDERED: BUPIVACAINE-EPI 0.5%-1:200000 MPF 30 ML VIAL. ONE (06:42)
[2020-07-15] MEDS: IV RINGERS,LACTATED 1000ML 1,000 ML IV SCH ×2 (06:44→15:19)
[2020-07-15] MEDS ORDERED: HYDROmorphone 2 MG/ML VIAL IV PRN (07:00)
[2020-07-15] MEDS ORDERED: LIDOCAINE 1% PF 2 ML VIAL. ID PRN (07:00)
[2020-07-15] MEDS ORDERED: fentaNYL PF VIAL 100 MCG/2 ML VIAL IV PRN ×2 (07:00)
[2020-07-15] MEDS ORDERED: PROCHLORPERAZINE 10 MG/2 ML VIAL. IV PRN (07:00)
[2020-07-15] MEDS ORDERED: GLYCOPYRROLATE 1 MG/5 ML VIAL. ONE (08:12)
[2020-07-15] MEDS ORDERED: ROCURONIUM 50 MG/5 ML VIAL. ONE (08:12)
[2020-07-15] MEDS ORDERED: DESFLURANE > 120 MINUTES IH ONE (08:13)
[2020-07-15] MEDS ORDERED: PROPOFOL 50 ML IV ONE ×4 (08:13→13:49)
[2020-07-15] MEDS ORDERED: DEXAMETHASONE SOD PHOS 20 MG/5 ML VIAL. ONE (08:13)
[2020-07-15] MEDS ORDERED: REMIFENTANIL 2 MG VIAL. IV ONE ×2 (08:13→11:52)
[2020-07-15] MEDS ORDERED: KETOROLAC 30 MG/ML VIAL. ONE (08:13)
[2020-07-15] MEDS ORDERED: ONDANSETRON PF 4 MG/2 ML VIAL. ONE (08:13)
[2020-07-15] MEDS ORDERED: MIDAZOLAM HCL/PF 2 MG/2 ML VIAL. ONE (08:13)
[2020-07-15] MEDS ORDERED: PROPOFOL 10 MG/ML (20ML) VIAL. IV ONE (08:13)
[2020-07-15] MEDS ORDERED: PHENYLEPHRINE 10 MG/ML VIAL. ONE (08:14)
[2020-07-15] MEDS ORDERED: LIDOCAINE 2% PF 5 ML VIAL. ONE (08:25)
[2020-07-15] MEDS ORDERED: KETAMINE HCL IN NACL, ISO-OSM 50 MG/5 ML SYRINGE ONE (11:39)
[2020-07-15] MEDS ORDERED: ceFAZolin SODIUM IV Push 1 GM VIAL. IVP ONE (13:50)
[2020-07-15] MEDS ORDERED: HYDROmorphone 2 MG/ML VIAL ONE (13:55)
[2020-07-15] MEDS ORDERED: fentaNYL PF VIAL 100 MCG/2 ML VIAL IVP PRN (14:45)
[2020-07-15] MEDS ORDERED: METHOCARBAMOL 750 MG TABLET PO PRN (14:45)
[2020-07-15] MEDS ORDERED: DICYCLOMINE HCL 10 MG CAPSULE PO PRN (14:45)
[2020-07-15] MEDS ORDERED: NALOXONE 0.4 MG/ML VIAL. IV PRN (14:45)
[2020-07-15] MEDS ORDERED: oxyCODONE/APAP 5/325 1 TAB TABLET PO PRN (14:45)
[2020-07-15] MEDS ORDERED: MAGNESIUM HYDROXIDE 2,400 MG/30 ML ORAL.SUSP. PO PRN (14:45)
[2020-07-15] MEDS ORDERED: 0.9 % SODIUM CHLORIDE 10 ML DISP.SYRIN. IV PRN (14:45)
[2020-07-15] MEDS ORDERED: CALCIUM CARBONATE 500 MG TAB.CHEW PO PRN (14:45)
[2020-07-15] MEDS ORDERED: ACETAMINOPHEN 325 MG TABLET. PO PRN (14:45)
[2020-07-15] MEDS ORDERED: diphenhydrAMINE HCL 25 MG CAPSULE PO PRN (14:45)
[2020-07-15] MEDS ORDERED: MAG HYDROX/ALUMINUM HYD/SIMETH 30 ML ORAL.SUSP PO PRN (14:45)
[2020-07-15] MEDS ORDERED: PROCHLORPERAZINE 10 MG/2 ML VIAL. ONE (15:09)
[2020-07-15] MEDS ORDERED: MORPHINE SULFATE 2 MG/ML VIAL. ONE (15:09)
[2020-07-15] MEDS ORDERED: ONDANSETRON ODT 4 MG TAB.RAPDIS. PO PRN (15:15)
[2020-07-15] MEDS: MORPHINE SULFATE 2 MG/ML VIAL. IV PRN ×2 (15:20→15:31)
--- NOTE | 2020-07-15 15:36 | RAD ---
EXAM: CT Lumbar Spine without IV contrast INDICATION: Reason: / Spl. Instructions: LOW BACK PAIN, LUMBAR STENOSIS W RADICULOPATHY / History: TECHNIQUE: Multi-detector row CT images were obtained through the lumbar spine without the use of IV contrast. Post-processing sagittal and coronal reconstructed images were obtained for interpretation. Axial thin slice images through the individual levels of the lumbar spine were obtained. All CT scans performed at this facility utilize dose optimization techniques as appropriate to the exam, including the following: Automated exposure control and adjustment of the mA and/or KV according to patient size (this includes techniques or standardized protocols for targeted exams where dose is indication/reason for exam). COMPARISON: L-spine MRI 04/18/2020, CT lumbar myelogram of 05/07/2020 FINDINGS: In order to maintain consistent with previous numbering, the lowest fully formed disc is referred to as the L5-T level. There is transitional anatomy at the lumbosacral junction with the inferior most fully formed lumbar type vertebra (which is partially sacralized bilaterally) referred to as T (annotated on the images as L6). 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 ALIGNMENT: Alignment again demonstrates mild levoscoliosis, Davies angle of 7.8 degrees as measured from the superior plate of L2 to the superior endplate of T. No listhesis. OSSEOUS: No evidence of acute fracture or bone destruction. Stable chronic appearing left L5 lamina defect, representing either postsurgical change or chronic fracture. DISC SPACES: Mild multilevel disc loss of height, similar to prior. FACET JOINTS: Bilateral L5-T facet degenerative changes. Mild bilateral L5-S1 facet degenerative change. SPINAL CANAL: Dorsal spinal stimulator electrodes entering the central canal from a left-sided L1-L2 interlaminar approach. NEUROFORAMINA: Mild foraminal narrowing present at L4-L5 and L5-T At T12-L1, no stenosis At L1-L2, mild disc loss of height. No stenosis. At L2-L3, mild diffuse disc bulge. No stenosis. At L3-L4, minimal disc bulge with loss of height asymmetric to the right. Mild bilateral foraminal narrowing. At L4-L5, mild diffuse disc bulge, mild bilateral ligamentum flavum thickening results in mild bilateral foraminal stenosis, left greater than right. Central canal is patent. At L5-T, bilateral ligamentum flavum thickening, disc bulge asymmetric to the left results in moderate to severe left foraminal stenosis, at least moderate central canal stenosis, and moderate right foraminal stenosis. At T-S, no stenosis. SOFT TISSUES: Spinal stimulator electrode generator is in the right dorsal paraspinal soft tissues. IMPRESSION: Multilevel lumbar spinal degenerative changes with transitional anatomy as described. Electronically signed by: Ioana Felix MD (07/15/2020 3:33 PM) [id number]
--- NOTE | 2020-07-15 16:05 | NUR ---
Arrived to unit by bed from PACU. Alert and oriented x's 4. C/o being uncomfortable. Repositioned. Surgical sites x's 2 lower back have some shadowing. Able to move all extremities easily, warm to touch and pulses +. TORI's and SHERRIE's on bilaterally. IVF's intact and infusing. Oriented to room and controls. Side rails up x's 2 with call light in reach. Spouse at bedside. Cont. monitor.
[2020-07-15] MEDS ORDERED: POTASSIUM CL 20MEQ D5-0.45NACL 1,000 ML IV SCH (17:00)
--- NOTE | 2020-07-15 17:15 | NUR ---
Sat on edge of bed and stood up with stand by assist. C/o being stiff. Stood up for several minutes and return back to bed resting on left side with pillow between the knees. With call light in reach.
[2020-07-15] MEDS: ceFAZolin SODIUM IV Push 1 GM VIAL. IVP SCH (17:26)
[2020-07-15] MEDS: DOCUSATE SODIUM 100 MG CAPSULE. PO SCH (20:59)
[2020-07-15] MEDS: oxyCODONE/APAP 5/325 1 TAB TABLET PO PRN (20:59)
[2020-07-15] MEDS: HYDROXYCHLOROQUINE 200 MG TABLET PO SCH (20:59)
[2020-07-16 02:59] VITALS: BP 101/44
[2020-07-16] MEDS: ceFAZolin SODIUM IV Push 1 GM VIAL. IVP SCH ×2 (03:02→09:59)
[2020-07-16] MEDS: oxyCODONE/APAP 5/325 1 TAB TABLET PO PRN ×3 (03:07→14:04)
[2020-07-16] MEDS ORDERED: LEVOTHYROXINE 175 MCG TABLET PO SCH (06:00)
[2020-07-16 07:52] VITALS: BP 154/58
[2020-07-16] MEDS: DOCUSATE SODIUM 100 MG CAPSULE. PO SCH (08:27)
[2020-07-16] MEDS: HYDROXYCHLOROQUINE 200 MG TABLET PO SCH (08:28)
[2020-07-16] MEDS ORDERED: FOLIC ACID 1 MG TABLET. PO SCH (09:00)
--- NOTE | 2020-07-16 09:00 | NUR ---
Doing well this am. Pain is under control with pain medication. Ambulating in room with steady gait. Discussed the plan of care for today. Verbalized understanding. Cont. monitor.
[2020-07-16 11:00] VITALS: BP 105/73
[2020-07-16] MEDS ORDERED: OXYC1TAB15 PO (13:14)
[2020-07-16] MEDS ORDERED: METH750T2 PO (13:14)
--- NOTE | 2020-07-16 13:15 | DISCH ---
DISCHARGE INSTRUCTIONS Condition on Discharge Condition on Discharge: Stable Activity After Discharge Activity Instructions for Disc: Activity as tolerated, Avoid exertion Bathing Instructions: Shower-keep dressing dry Lifting Instructions after Dis: No heavy lifting, No pulling or pushing, Do not lift >10 pounds Diet after Discharge Diet after Discharge: Regular Additional Diet Restrictions: resume home diet Wound Incision Care Wound/Incision Care: Ice to area for comfort Other wound/incision instructi: may remove dressing in 48 hours if dry, leave steri strips Contacting the DRJulieta after DC Call your doctor for: Concerns you may have Follow-Up Follow up with: Dr. Quezada's nurse in 2 weeks [phone] SHIRA QUEZADA MD Jul 16, 2020 13:15
[2020-07-16 15:00] VITALS: BP 103/52
--- NOTE | 2020-07-16 15:25 | NUR ---
Discharge instructions given with prescriptions and dressing supplies. Answered questions and concerns. Verbalized understanding. Received LSO brace. Pt discharged home accompanied by spouse.
[2020-07-17] MEDS ORDERED: METHOTREXATE SODIUM 2.5 MG TABLET PO SCH (09:00)
--- NOTE | 2020-07-19 12:06 | PATHOLOGY ---
[facility] Accession Number: [id number] . 01 Material submitted: . vertebral column - LUMBAR DECOMPRESSION . 01 Clinical history: . LOW BACK PAIN, LUMBAR STENOSIS, RADICULOPATHY . 02 Diagnosis: Bone and soft tissue "lumbar vertebra", excision: - Reactive/regenerative features of hyaline cartilage and periosteum. - Fragments of trabecular bone without significant pathologic alteration. - Negative for malignancy. (MLK:abiola; 07/18/2020) QMS 07/19/2020 1120 Local . 02 Electronically signed: . Rosa Qureshi MD, Pathologist NPI- [id number] . 01 Gross description: . The specimen is received in formalin, labeled "Iris Castillo, lumbar decompression" and consists of multiple fragments of stephens bone measuring 1.5 x 1.0 x 0.4 cm in aggregate which are entirely submitted in A1 following decalcification (SDY; 07/17/2020) SYU/SYU 07/17/2020 1115 Local . 02 Pathologist provided ICD-10: M54.9, M99.73, M54.10 . 02 CPT . 357498, 201904 Specimen Comment: A courtesy copy of this report has been sent to [phone], [phone] Specimen Comment: [id number] Specimen Comment: Report sent to / DR LO Performed at: 01 [facility] [address], [place] [id number] MD Franck Billy MD Phone: [phone] Performed at: 02 [facility] [address], [place] [id number] MD Osei Hunt MD Phone: [phone]
--- NOTE | 2020-07-19 14:06 | OP ---
DATE OF SURGERY: 07/15/2020. PREOPERATIVE DIAGNOSIS: Bilateral foraminal narrowing with spondylolisthesis, L4-L5. POSTOPERATIVE DIAGNOSIS: Bilateral foraminal narrowing with spondylolisthesis, L4-L5. OPERATION PERFORMED: Bilateral transforaminal decompression L4-L5, posterior instrumentation L4-L5, posterolateral fusion L4-L5. The operation was done with multimodality monitoring including EMG monitoring, stimulated EMG monitoring, SSEP. We also used fluoroscopy, microscopic dissection, BrainLAB guidance, bone marrow aspiration. SURGEON: Greg Quezada M.D. [employer] AGENT: Renetta Mcgregor APRN, assisted with the surgery. She assisted with the exposure, the placement of the hardware, decompression as well as posterolateral fusion and closure. OPERATIVE INDICATIONS: The patient is a pleasant 40-year-old who in the past had undergone surgery for a herniated disc on the left at L4-L5. She initially did well. She then developed difficulties, no operative lesion was found, then she underwent a spinal cord stimulator. She has now developed markedly increased pain in her lower back, which radiates into both of her lower extremities. The pain is severe and the above-mentioned findings were seen on imaging studies. She has failed to improve with significant amounts of conservative measures. After evaluation, I recommended lumbar surgery. I spoke with her about the operation, the technique and expected postoperative course and she wished to go ahead. DESCRIPTION OF PROCEDURE: Following general endotracheal anesthesia, the patient was positioned prone on the Aquilino table. Lumbar region prepped and draped in standard fashion. TORI hose and AV impulse boots were applied for DVT prophylaxis. The microscope was draped. Fluoroscopy was draped and brought into field. Monitoring was established. Ancef 2 grams was given less than 1 hour prior to initiation of the surgery. Using fluoroscopic guidance, iliac pins were placed in the left iliac crest and the BrainLAB system was initialized. I then made a median incision extending from inferior L3 to superior S1. I dissected down through skin and subcutaneous tissue, reflected the paraspinal muscles and placed self-retaining retractors. On the left side, using anatomic landmarks as well as BrainLAB system, I drilled in the posterior aspect of the pedicles of L4 and L5. I passed the black ball, followed by ball tip probe, followed by tap, followed by screw placement. Prior to placing the screws; however, I did expose the lateral aspect of the facets and the transverse processes, which I excoriated. I placed a needle into the left iliac crest aspirated 20 mL of bone marrow and mixing this with allograft bone, placed this in the left lateral gutter. The asiya was placed, nuts were placed. The system was not yet torqued. During this time, I brought in the microscope and I drilled the bone overlying the neural foramen on the left side. I worked from medial to lateral and I worked quite far medially to the edge of the dura and then worked laterally and I fully decompressed the neural foramen. I then, at this point, switched to the contralateral side in a similar fashion, exposed the transverse processes, the lamina as well as the facets on the right. Again, I cannulated the facets in the following fashion. I cannulated the pedicles in the following fashion. I drilled the posterior aspect of the pedicle, I passed the black ball with stimulated EMG monitoring followed by the ball tip probe, followed by tap with stimulated EMG monitoring. Although, on this side, yet I did not place the screws. I did cover the openings with bone wax. I excoriated the lateral aspect of the facets as well as the transverse processes and packed bone in the right lateral gutter. I drilled the bone overlying the foramen on the right side and fully decompressed the right foramen and then I placed the pedicle screws and assured that they were in perfect position with fluoroscopic images. I did readjust 1 L5 screw to be sure it was in perfect position and although on readjustment, I found that the position was adequate, but could be improved and therefore improved it. I placed the rods and the nuts in L5 and torqued these and then gradually tightened the nuts at L4 and then torqued these. There was a numbering issue. In some studies, this level was called L5-S1, but another studies this level was called L4-L5 because she has a sacralized L5-S1. At any rate, I did decompress the correct level and instrument at this level. I looked on fluoroscopic images and the spondylolisthesis had improved. I irrigated copiously. I then closed the wound in layers with absorbable suture. The skin with a 4-0 subcuticular stitch. I felt the surgery went very well. The monitoring was excellent throughout. There was no problem in placement of the screws and no deviation from within the pedicle. Again, I was quite pleased with the surgery. GREG QUEZADA MD DR: YENIFER/barbra JOB#: [id number] / [id number] BUFFY
[2020-07-21] MEDS ORDERED: ERGOCALCIFEROL (VITAMIN D2) 50,000 UNIT CAPSULE. PO SCH (09:00)
== END 2020-07-16 15:25 | disposition home or self-care (01) | DRG 460 ==
LOC: OPSVCIP 07-15 06:04 → 4 NORTH 07-15 16:04
PROVIDERS: ADMIT Neurological Surgery; ATTEND Neurological Surgery
PROC: 01NB3ZZ Release Lumbar Nerve, Percutaneous Approach (ICD-10-PCS; 2020-07-15)
PROC: 07DR3ZZ Extraction of Iliac Bone Marrow, Percutaneous Approach (ICD-10-PCS; 2020-07-15)
PROC: 4A11X4G Monitoring of Peripheral Nervous Electrical Activity, Intraoperative, External Approach (ICD-10-PCS; 2020-07-15)
PROC: 0SG0071 Fusion of Lumbar Vertebral Joint with Autologous Tissue Substitute, Posterior Approach, Posterior Column, Open Approach (ICD-10-PCS; principal; 2020-07-15 08:30)
DX: M47.26 Other spondylosis with radiculopathy, lumbar region (principal); E89.0 Postprocedural hypothyroidism; M06.9 Rheumatoid arthritis, unspecified; I10 Essential (primary) hypertension; M51.16 Intervertebral disc disorders with radiculopathy, lumbar region; M43.16 Spondylolisthesis, lumbar region; G43.909 Migraine, unspecified, not intractable, without status migrainosus; Z88.8 Allergy status to other drugs, medicaments and biological substances; Z88.0 Allergy status to penicillin; Z90.710 Acquired absence of both cervix and uterus; Z90.49 Acquired absence of other specified parts of digestive tract; Z80.9 Family history of malignant neoplasm, unspecified; Z82.49 Family history of ischemic heart disease and other diseases of the circulatory system
CPT/HCPCS: 36415; 72131; 76000; 86850; 86900; 86901; 88304; 88311; A7015; C1713; J0690; J0780; J1100; J1170; J1885; J2250; J2270; J2370; J2405; J2704; J3010; J3480; J3490; J7030; J7120; 97116-GP; 97530-GP; G0378

== ENCOUNTER → 2020-07-10 | Outpatient (CLI) | payer BC ==
[2019-06-16 14:20] VITALS: BP 139/83
[~2020-07-10] MED LIST changes: +CEPH-264 PO; +METH750T2 PO; +OXYC1TAB15 PO
== END | disposition home or self-care (01) ==
LOC: LAB 14:04
PROVIDERS: ATTEND Neurological Surgery
DX: Z20.828 Contact with and (suspected) exposure to other viral communicable diseases (principal)
CPT/HCPCS: 87641; U0003

== ENCOUNTER 2020-07-20 13:09 | Emergency (ER) | payer BC ==
[~2020-07-20] VITALS: Ht 162.6 cm; Wt 90.0 kg
[~2020-07-20 13:09] MED LIST changes: -CEPH-264 PO
[2020-07-20 15:00] VITALS: BP 122/90
[2020-07-20] MEDS ORDERED: IV NORMAL SALINE 1000ML BAG 1,000 ML IV ONE (15:30)
[2020-07-20 15:44] LABS: BASO # 0.1 x10^3/uL (0.0-0.2); BASO % 1 % (0-3); EOS # 0.8 x10^3/uL (0.0-0.7); EOS % 6 % (0-3); HEMATOCRIT 44.9 % (36.0-47.0); HEMOGLOBIN 15.4 g/dL (12.0-15.5); LYMPH # 2.7 x10^3/uL (1.0-4.8); LYMPH % 19 % (24-48); MEAN CORPUSCULAR HEMOGLOBIN 31 pg (25-35); MEAN CORPUSCULAR HGB CONC 34 g/dL (31-37); MEAN CORPUSCULAR VOLUME 91 fL (79-100); MONO % 7 % (0-9); NEUT # 9.2 x10^3/uL (1.8-7.7); NEUT % 67 % (31-73); PLATELET COUNT 428 x10^3/uL (140-400); RED BLOOD COUNT 4.94 x10^6/uL (3.50-5.40); RED CELL DISTRIBUTION WIDTH 12.5 % (11.5-14.5); WHITE BLOOD COUNT 13.7 x10^3/uL (4.0-11.0)
[2020-07-20 15:51] LABS: CALCIUM 9.2 mg/dL (8.5-10.1); CREATININE 0.9 mg/dL (0.6-1.0); GFR 69.3; POTASSIUM 3.6 mmol/L (3.5-5.1)
[2020-07-20 15:57] LABS: ALBUMIN 3.7 g/dL (3.4-5.0); ALBUMIN/GLOBULIN RATIO 0.8 (1.0-1.7); MAGNESIUM 2.1 mg/dL (1.8-2.4); TOTAL BILIRUBIN 0.6 mg/dL (0.2-1.0); TOTAL PROTEIN 8.3 g/dL (6.4-8.2)
--- NOTE | 2020-07-20 16:28 | PHYS DOC ---
Past Medical History Past Medical History: Hypertension, Migraines Additional Past Medical Histor: CROHN'S, RHEUMATOID ARTHRITIS, CONSTANCE, ULC ERATIVE COLITIS, BEHCETS, Past Surgical History: Cholecystectomy, Hysterectomy, Tonsillectomy, Other Additional Past Surgical Histo: THYROID REMOVED, RIGHT KNEE SX, SPINAL FUSION Smoking Status: Never Smoker Alcohol Use: None Drug Use: None General Adult EDM: Chief Complaint: OTHER COMPLAINTS HPI: HPI: Is a 40-year-old female presenting with a painful left arm. Patient had a bilateral transforaminal decompression at L4-L5 on 07/15/2020. Patient is very satisfied with the procedure but patient complains of pain associated with an IV site on the left arm. Patient states pain has progressively gotten worse over the course 5 of days and had a red armando spread up past her left elbow. Patient states she had a fever of 101 at some point but patient is afebrile at presentation. Patient denies any weakness, sensory changes, chills, chest pain, shortness of breath, COVID-19 contacts. Review of Systems: Review of Systems: Constitutional: Endorses fever, denies chills Eyes: Denies redness or eye pain HENT: Denies nasal congestion or sore throat Respiratory: Denies cough or shortness of breath Cardiovascular: Denies chest pain or palpitations GI: Denies abdominal pain, nausea, or vomiting : Denies dysuria or hematuria Musculoskeletal: Endorses back pain or joint pain Integument: Endorses rash or skin lesions Neurologic: Denies headache, focal weakness or sensory changes Complete systems were reviewed and found to be within normal limits, except as documented in this note. Current Medications: Current Medications Medications (Trade) Dose Ordered Sig/Krish Start Time Stop Time Status Last Admin Dose Admin Sodium Chloride 1,000 ml @ 1,000 mls/hr 1X ONCE 07/20/20 15:30 07/20/20 16:29 07/20/20 15:40 1,000 MLS/HR Allergies: Allergies: Allergies Coded Allergies Type Severity Reaction Last Updated Verified levothyroxine sodium Allergy Intermediate Hives 07/15/20 Yes penicillin G Allergy Intermediate Hives 07/15/20 Yes Physical Exam: PE: Constitutional: Well developed, well nourished, no acute distress, non-toxic appearance HENT: Normocephalic, atraumatic Eyes: PERRL, EOMI, conjunctiva normal, no discharge Neck: Normal range of motion, no tenderness, supple Lungs & Thorax: Bilateral breath sounds clear to auscultation, no wheezing Abdomen: Soft, no tenderness Skin: Warm, dry, no erythema, no rash Back: Right lumbar paraspinal area has spinal cord stimulator implant battery present, surgical wound shows no erythema, no purulent drainage. Of note there seems to be a contact dermatitis that follows the pattern of the previous dressing. Extremities: Range of motion grossly intact bilaterally, left upper extremity shows a serpentine erythematous path standing from her dorsal right hand to her right elbow, resembling thrombophlebitis. Neurologic: Alert and oriented X 3, normal motor function, normal sensory function, no focal deficits noted Psychologic: Affect normal, judgment normal Current Patient Data: Labs: Laboratory Tests Test 07/20/20 15:15 White Blood Count 13.7 x10^3/uL (4.0-11.0) H Red Blood Count 4.94 x10^6/uL (3.50-5.40) Hemoglobin 15.4 g/dL (12.0-15.5) Hematocrit 44.9 % (36.0-47.0) Mean Corpuscular Volume 91 fL (79-100) Mean Corpuscular Hemoglobin 31 pg (25-35) Mean Corpuscular Hemoglobin Concent 34 g/dL (31-37) Red Cell Distribution Width 12.5 % (11.5-14.5) Platelet Count 428 x10^3/uL (140-400) H Neutrophils (%) (Auto) 67 % (31-73) Lymphocytes (%) (Auto) 19 % (24-48) L Monocytes (%) (Auto) 7 % (0-9) Eosinophils (%) (Auto) 6 % (0-3) H Basophils (%) (Auto) 1 % (0-3) Neutrophils # (Auto) 9.2 x10^3/uL (1.8-7.7) H Lymphocytes # (Auto) 2.7 x10^3/uL (1.0-4.8) Monocytes # (Auto) 1.0 x10^3/uL (0.0-1.1) Eosinophils # (Auto) 0.8 x10^3/uL (0.0-0.7) H Basophils # (Auto) 0.1 x10^3/uL (0.0-0.2) Prothrombin Time 13.0 SEC (11.7-14.0) Prothrombin Time INR 1.0 (0.8-1.1) Activated Partial Thromboplast Time 30 SEC (24-38) Sodium Level 136 mmol/L (136-145) Potassium Level 3.6 mmol/L (3.5-5.1) Chloride Level 99 mmol/L (98-107) Carbon Dioxide Level 27 mmol/L (21-32) Anion Gap 10 (6-14) Blood Urea Nitrogen 10 mg/dL (7-20) Creatinine 0.9 mg/dL (0.6-1.0) Estimated GFR (Cockcroft-Gault) 69.3 BUN/Creatinine Ratio 11 (6-20) Glucose Level 112 mg/dL (70-99) H Lactic Acid Level 1.5 mmol/L (0.4-2.0) Calcium Level 9.2 mg/dL (8.5-10.1) Magnesium Level 2.1 mg/dL (1.8-2.4) Total Bilirubin 0.6 mg/dL (0.2-1.0) Aspartate Amino Transferase (AST) 27 U/L (15-37) Alanine Aminotransferase (ALT) 47 U/L (14-59) Alkaline Phosphatase 83 U/L (46-116) Total Protein 8.3 g/dL (6.4-8.2) H Albumin 3.7 g/dL (3.4-5.0) Albumin/Globulin Ratio 0.8 (1.0-1.7) L Laboratory Tests 07/20/20 15:15 Laboratory Tests 07/20/20 15:15 Vital Signs: Vital Signs Date Time Temp Pulse Resp B/P (MAP) Pulse Ox O2 Delivery O2 Flow Rate FiO2 07/20/20 15:00 98.9 127 18 122/90 (101) 97 Room Air 98.9 Course & Med Decision Making: Course & Med Decision Making Pertinent Labs and Imaging studies reviewed. (See chart for details) Patient is a 40-year-old female presenting with right arm pain. Laboratory hematology shows WBC of 13.7, other labs are unremarkable discussed patient with Dr. humaira Combs nurse practitioner, and concurred with one-time dose of dexamethasone dexamethasone and and empiric antibiotic treatment with Keflex for the thrombophlebitis. Patient's surgical wound was redressed at patient's request. Patient stable for discharge with outpatient follow-up with PCP. Discussed findings and plan with patient, who acknowledges understanding and agreement. Rupa Disclaimer: Rupa Disclaimer: This electronic medical record was generated, in whole or in part, using a voice recognition dictation system. Departure Departure Impression: Primary Impression: Thrombophlebitis arm Additional Impression: Encounter for post surgical wound check Disposition: HOME, SELF-CARE Condition: STABLE Referrals: NANCY LO MD (PCP) SHIRA QUEZADA MD Patient Instructions: Phlebitis, [id number] Scripts Cephalexin (KEFLEX) 500 Mg Capsule 500 MG PO QID for 7 Days, #28 CAP Prov: VANESSA NOE DO 07/20/20 Justicifation of Admission Dx: Justifications for Admission: Justification of Admission Dx: N/A VANESSA NOE DO Jul 20, 2020 16:28
[2020-07-20] MEDS ORDERED: CEPHALEXIN 250 MG CAPSULE. PO ONE (17:00)
[2020-07-20] MEDS ORDERED: CEPH-264 PO (17:10)
[2020-07-20] MEDS ORDERED: oxyCODONE/APAP 5/325 1 TAB TABLET PO ONE (17:15)
[2020-07-20] MEDS ORDERED: DEXAMETHASONE 4 MG TABLET PO ONE (17:15)
== END 2020-07-20 17:30 | disposition home or self-care (01) ==
LOC: ER 13:09
DX: I80.8 Phlebitis and thrombophlebitis of other sites (principal); M79.602 Pain in left arm; R50.9 Fever, unspecified; I10 Essential (primary) hypertension; G43.909 Migraine, unspecified, not intractable, without status migrainosus; Z90.710 Acquired absence of both cervix and uterus; Z90.49 Acquired absence of other specified parts of digestive tract; Z98.890 Other specified postprocedural states; Z88.0 Allergy status to penicillin; Z88.8 Allergy status to other drugs, medicaments and biological substances
CPT/HCPCS: 36415; 80053; 83605; 83735; 85025; 85610; 85730; 87040; 96360; 99284; J7030

== ENCOUNTER → 2020-09-30 | Outpatient (CLI) | payer BC ==
[~2020-09-30] MED LIST changes: +CEPH-264 PO
--- NOTE | 2020-10-01 16:07 | RAD ---
3 views of the lumbar spine for status post lumbar fusion. FINDINGS: There is a transitional lumbosacral vertebral body. There is straightening of the normal lumbar lordosis. Bilateral pedicle screw and asiya fixation of L5 with the transitional vertebral body is present with no hardware abnormality. Spine stimulator is noted. No acute osseous abnormality and no unexpected radiopaque foreign bodies. IMPRESSION: 1. Postsurgical changes of lumbar spine with transitional anatomy as described. Electronically signed by: Fransisco Novoa MD (10/01/2020 4:03 PM) [id number]
== END ==
LOC: RAD 09:37
PROVIDERS: ATTEND Neurological Surgery
DX: Z98.1 Arthrodesis status (principal)
CPT/HCPCS: 72100